=== PATIENT | male | born 1960 | race Caucasian/White ===

== ENCOUNTER 2016-06-10 09:26 | Day surgery (SDC) | payer MEDICARE, MEDICAID ==
[2016-06-10] MEDS ORDERED: LACTATED RINGERS 1,000 ML IV ONE (10:00)
[2016-06-10] MEDS ORDERED: MIDAZOLAM 2 MG/2 ML VIAL IVP ONE (10:56)
[2016-06-10] MEDS ORDERED: fentaNYL 250 MCG/5 ML VIAL IVP ONE (10:56)
== END 2016-06-10 09:27 | disposition home or self-care (01) ==
PROC: 0DJD8ZZ Inspection of Lower Intestinal Tract, Via Natural or Artificial Opening Endoscopic (ICD-10-PCS; principal; 2016-06-10 10:30)
DX: Z12.11 Encounter for screening for malignant neoplasm of colon (principal); K64.4 Residual hemorrhoidal skin tags; F32.9 Major depressive disorder, single episode, unspecified; K21.9 Gastro-esophageal reflux disease without esophagitis; R03.0 Elevated blood-pressure reading, without diagnosis of hypertension; I10 Essential (primary) hypertension; G47.30 Sleep apnea, unspecified; Z95.0 Presence of cardiac pacemaker; Z82.61 Family history of arthritis; Z80.9 Family history of malignant neoplasm, unspecified; Z83.3 Family history of diabetes mellitus
CPT/HCPCS: G0121; J3010; J7120

== ENCOUNTER 2016-06-23 22:02 | Emergency (ER) | payer MEDICARE, MEDICAID | END 2016-06-23 23:41 | disposition home or self-care (01) | DX: N45.1 Epididymitis (principal); I10 Essential (primary) hypertension; G47.30 Sleep apnea, unspecified; K21.9 Gastro-esophageal reflux disease without esophagitis; Z87.11 Personal history of peptic ulcer disease ==

== ENCOUNTER 2017-08-05 09:15 | Outpatient (CLI) | payer MEDICARE, MEDICAID ==
[2017-08-05] MEDS ORDERED: BARIUM SULFATE 135 ML BOTTLE PO ONE (09:45)
[2017-08-05] MEDS ORDERED: BARIUM SULFATE 148 GM POWDER PO ONE (09:45)
--- NOTE | 2017-08-05 15:49 | XRAY Report ---
ESOPHAGRAM: 08/05/2017 INDICATION: Choking. FINDINGS: Esophagram was performed in the upright and prone positions. The esophagus is normal in caliber. Tertiary contractions were seen. Gastroesophageal reflux was visualized during the course of the study. There is no evidence of esophageal mass, ulceration, or stricturing. The hypopharynx appears unremarkable. A 13 mm barium pill passed freely through the esophagus and into the stomach. IMPRESSION: GASTROESOPHAGEAL REFLUX AND PRESBYESOPHAGUS. NO EVIDENCE OF MASS OR ULCERATION. FLUOROSCOPY TIME: 2 minutes 15 seconds; 21 spot images obtained. TD: 08/05/2017 12:17 [email or web address]
== END 2017-08-05 09:16 | disposition home or self-care (01) ==
LOC: DI 09:15
PROVIDERS: ATTEND Nurse Practitioner Family
DX: K21.9 Gastro-esophageal reflux disease without esophagitis (principal); K22.8 Other specified diseases of esophagus
CPT/HCPCS: 74220; A9270

== ENCOUNTER 2017-08-28 11:43 | Outpatient (CLI) | payer MEDICARE, MEDICAID | END 2017-08-28 11:44 | disposition short-term general hospital (02) | LOC: EMS 11:43 | PROVIDERS: ATTEND Surgery | DX: R42 Dizziness and giddiness (principal); R11.0 Nausea; R10.9 Unspecified abdominal pain | CPT/HCPCS: A0425; A0427 ==

== ENCOUNTER 2018-09-08 08:45 | Outpatient (CLI) | payer MEDICARE, MEDICAID ==
[2018-09-08 11:07] LABS: BASOPHILS # (AUTO) 0.1 10^3/uL (0.0-0.1); BASOPHILS % (AUTO) 0.7 %; EOSINOPHILS # (AUTO) 0.5 10^3/uL (0.0-0.7); EOSINOPHILS % (AUTO) 7.3 %; HGB - HEMOGLOBIN 13.8 g/dL (14.0-18.0); LYMPHOCYTES # (AUTO) 1.8 10^3/uL (1.5-3.5); LYMPHOCYTES % (AUTO) 24.7 %; MEAN CORPUSCULAR HEMOGLOBIN 28.7 pg (27.0-31.0); MEAN CORPUSCULAR HGB CONC 32.9 g/dL (32.0-36.0); MEAN CORPUSCULAR VOLUME 87.3 fL (80.0-94.0); MEAN PLATELET VOLUME 9.6 fL (7.4-11.4); MONOCYTES # (AUTO) 0.8 10^3/uL (0.0-1.0); MONOCYTES % (AUTO) 10.5 %; NEUTROPHILS # (AUTO) 4.1 10^3/uL (1.5-6.6); NEUTROPHILS % (AUTO) 56.8 %; PLT - PLATELET COUNT 180 10^3/uL (130-450); RED BLOOD COUNT 4.81 10^6/uL (4.70-6.10); WHITE BLOOD COUNT 7.3 x10^3/uL (4.8-10.8)
[2018-09-08 17:45] LABS: HB2 TOTAL 14.5 g/dL; HEMOGLOBIN A1C 0.68 g/dL; HEMOGLOBIN A1C % 6.4 % (4.6-6.2)
[2018-09-08 17:50] LABS: BILIRUBIN,URINE NEGATIVE (NEGATIVE); GLUCOSE, URINE (UA) NEGATIVE (NEGATIVE); KETONES,URINE (UA) NEGATIVE (NEGATIVE); LEUKOCYTE ESTERASE, URINE NEGATIVE (NEGATIVE); NITRITE,URINE NEGATIVE (NEGATIVE); OCCULT BLOOD,URINE NEGATIVE (NEGATIVE); PROTEIN,URINE NEGATIVE (NEGATIVE); UROBILINOGEN,URINE 0.2 (NORMAL) E.U./dL (NORMAL)
[2018-09-08 17:51] LABS: ALBUMIN 4.1 g/dL (3.2-5.5); ALBUMIN/GLOBULIN RATIO 1.2 (1.0-2.2); ALKALINE PHOSPHATASE 88 IU/L (42-121); ALT ALANINE AMINOTRANSFERASE 27 IU/L (10-60); AST ASPARTATE AMINOTRANSFERASE 23 IU/L (10-42); BILIRUBIN,TOTAL 0.6 mg/dL (0.2-1.0); BUN - BLOOD UREA NITROGEN 11 mg/dL (6-20); CALCIUM 9.5 mg/dL (8.5-10.3); CARBON DIOXIDE - CO2 31 mmol/L (21-32); CHLORIDE 100 mmol/L (101-111); CHOL/HDL RATIO 6.1 (<5.0); CHOLESTEROL 188 mg/dL; CREATININE 0.9 mg/dL (0.6-1.2); GFR - MDRD 86 (>89); GLUCOSE 132 mg/dL (70-100); HDL CHOLESTEROL 31 mg/dL; LDL CHOLESTEROL,CALCULATED 115 mg/dL; LDL/HDL RATIO 3.7 (<3.6); SODIUM 139 mmol/L (135-145); TOTAL PROTEIN 7.6 g/dL (6.7-8.2); VLDL CHOLESTEROL 42 mg/dL
[2018-09-08 18:07] LABS: CLARITY,URINE CLOUDY (CLEAR)
[2018-09-08 18:22] LABS: AMORPHOUS SEDIMENT,UR Marked /LPF; BACTERIA,URINE None Seen /HPF (None Seen); RBC,URINE None Seen /HPF (0-5); SQUAMOUS EPITHELIAL CELL,UR NONE SEEN (<= Few)
== END 2018-09-08 08:46 | disposition home or self-care (01) ==
LOC: LAB.F 08:45
PROVIDERS: ATTEND Nurse Practitioner
DX: I10 Essential (primary) hypertension (principal); Z13.89 Encounter for screening for other disorder; R35.0 Frequency of micturition; Z13.1 Encounter for screening for diabetes mellitus; Z12.5 Encounter for screening for malignant neoplasm of prostate
CPT/HCPCS: 36415; 80053; 80061; 81001; 83036; 85025; G0103; 81003; 83721; 84153; 87086

== ENCOUNTER 2019-02-15 08:39 | Outpatient (CLI) | payer MEDICARE, MEDICAID ==
[2019-02-15 10:53] LABS: ALBUMIN 4.3 g/dL (3.2-5.5); BILIRUBIN,DIRECT 0.1 mg/dL (0.1-0.5); BILIRUBIN,TOTAL 0.8 mg/dL (0.2-1.0); TOTAL PROTEIN 7.7 g/dL (6.7-8.2)
== END 2019-02-15 08:40 | disposition home or self-care (01) ==
LOC: LAB.S 08:39
PROVIDERS: ATTEND Internal Medicine
DX: B35.1 Tinea unguium (principal)
CPT/HCPCS: 36415; 80076

== ENCOUNTER 2019-12-09 19:40 | Emergency (ER) | payer MEDICARE, MEDICAID ==
[2019-12-09 19:54] VITALS: BP 145/90
[2019-12-09] MEDS ORDERED: AMOX/CLAV 875 MG/125 MG TABLET PO STA (19:56)
--- NOTE | 2019-12-09 19:57 | ED Physician Documentation ---
PD HPI LOWER EXT INJURY - Stated complaint Stated Complaint: RT FOOT PX/SMELL - Chief complaint Chief Complaint: Wound - History obtained from History obtained from: Patient, Family - Additional information Additional information: 59-year-old gentleman with history of CLL in remission lost multiple toes in an accident in the . More recently has been walking more and now has an overuse type wound on the end of the right foot with foul-smelling drainage. No fevers or chills. Review of Systems Constitutional: reports: Reviewed and negative Ears: reports: Reviewed and negative Nose: reports: Reviewed and negative Throat: reports: Reviewed and negative Cardiac: reports: Reviewed and negative PD PAST MEDICAL HISTORY - Past Medical History Cardiovascular: Hypertension, Other Respiratory: Sleep apnea Endocrine/Autoimmune: None GI: GERD, Ulcers : None HEENT: None Psych: Depression Musculoskeletal: None Derm: None - Past Surgical History Past Surgical History: Yes General: Appendectomy, Bowel surgery Cardiovascular: Pacemaker - Present Medications Home Medications: Ambulatory Orders Medication Instructions Recorded Confirmed Pantoprazole [Protonix] 40 mg PO DAILY 04/22/15 12/09/19 Cyanocobalamin (Vitamin B-12) 1 tab PO DAILY 06/09/16 12/09/19 [Vitamin B-12] Ibuprofen [Motrin] 600 mg PO Q6H PRN 07/21/16 12/09/19 Propranolol ER [Inderal LA] 80 mg PO DAILY 06/05/18 12/09/19 Sertraline HCl 100 mg PO DAILY 04/02/19 12/09/19 Amox/Clav 875/125 [Augmentin] 1 each PO Q12H #20 tablet 12/09/19 - Allergies Allergies/Adverse Reactions: Allergies Allergy/AdvReac Type Severity Reaction Status Date / Time No Known Drug Allergies Allergy Verified 12/09/19 19:54 - Social History Does the pt smoke?: No Smoking Status: Never smoker Does the pt drink ETOH?: No Does the pt have substance abuse?: No - Immunizations Immunizations are current?: Yes - POLST Patient has POLST: No PD ED PE NORMAL - Vitals Vital signs reviewed: Yes - General General: Alert and oriented X 3, No acute distress - Extremities Extremities: Other (Extensive surgical changes to the distal right foot, he is missing all of the toes. He says there is no hardware in place. There is a small draining fistula near the distal first metatarsal and a large callus over the tip of probably the second and third metatarsals which was debrided during exam.) - Neuro Neuro: Alert and oriented X 3, Normal speech Results - Vitals Vitals: Vital Signs - 24 hr 12/09/19 19:40 Temperature 37.0 C Heart Rate 62 Respiratory 16 Rate Blood Pressure 145/90 H O2 Saturation 97 Oxygen O2 Source Room air - Labs Labs: Microbiology 12/09/19 19:55 Wound Culture - Preliminary Foot - Right - Rads (name of study) 3 views of the right foot Radiology: EMP read contemporaneously (Extensive postsurgical changes without evidence of osteomyelitis) PD MEDICAL DECISION MAKING - ED course ED course: 59-year-old gentleman presents with an infected callus of his distal foot. He is not diabetic. It was debrided during exam but will need more debridement with a field sales specialist. A culture was done and he was started on Augmentin pending follow-up. Departure - Departure Disposition: 01 Home, Self Care Clinical Impression: Foot infection Condition: Good Record reviewed to determine appropriate education?: Yes Instructions: ED Infec Skin Cellulitis Follow-Up: Taty Robles DPM [Provider Admit Priv/Credential] - Prescriptions: Amox/Clav 875/125 [Augmentin] 1 each PO Q12H #20 tablet Comments: Follow-up with your field sales specialist, next available appointment for consideration for debridement and orthotics. We are performing a wound culture, the results should be done in 48-72 hours. If antibiotic change is necessary we will call you. Return if worse in the meantime, especially if you develop increased pain, fevers, cannot keep down the medication. Otherwise follow-up with your physician in approximately 2-3 days. Discharge Date/Time: 12/09/19 20:52
--- NOTE | 2019-12-09 20:32 | XRAY Report ---
PROCEDURE: Foot 3 View RT INDICATIONS: foot infection TECHNIQUE: 3 views of the foot were acquired. COMPARISON: None FINDINGS: Bones: Patient is status post amputation of the second through fifth toes. Patient is status post amp utation of the first digit distal to the base of the first metatarsal. Orthopedic hardware noted in t he distal aspect of the fourth metatarsal. No fractures or dislocations. No osseous erosive changes o r periosteal reaction. Soft tissues: No tibiotalar joint effusion. Achilles tendon appears normal. No soft tissue gas. IMPRESSION: 1. Status post first and fifth digit amputations. 2. No genesis evidence of osteomyelitis. Please note plain film radiographs can be insensitive to to es of osteomyelitis in the initial 15 days. If there is continued clinical concern for osteomyelitis, three-phase nuclear medicine bone scan should be considered for further evaluation. Reviewed by: Karina Cohn MD, PhD on 12/09/2019 8:31 PM PDT Approved by: Karina Cohn MD, PhD on 12/09/2019 8:31 PM PDT Station ID: [id number]
== END 2019-12-09 20:52 | disposition home or self-care (01) ==
LOC: ED 19:40
DX: L84 Corns and callosities (principal); L08.9 Local infection of the skin and subcutaneous tissue, unspecified; I10 Essential (primary) hypertension; C91.11 Chronic lymphocytic leukemia of B-cell type in remission; Z89.411 Acquired absence of right great toe; Z89.421 Acquired absence of other right toe(s)
CPT/HCPCS: 11000; 73630; 87070; 87181; 87205; 99283; 99284; A9270

== ENCOUNTER 2020-03-19 15:29 | Day surgery (SDC) | payer MEDICARE, MEDICAID ==
[2020-03-19] MEDS ORDERED: GLUCAGON 1 MG/ML VIAL IVP STA (16:40)
--- NOTE | 2020-03-19 16:41 | ED Physician Documentation ---
History of Present Illness - Stated complaint Stated Complaint: TROUBLE SWALLOWING, "FOOD GOT LODGED - Chief complaint Chief Complaint: Heent - History obtained from History obtained from: Patient - Additonal information Additional information: 60-year-old gentleman who has what sounds like an esophageal stricture. He was seeing GI at some point dilatation was recommended but he "chickened out." He has had what he thinks is probably a piece of meat stuck in his esophagus since last night and cannot tolerate his secretions although at the bedside he looks comfortable with normal phonation and not spitting into anything. Review of Systems Constitutional: reports: Reviewed and negative Nose: reports: Reviewed and negative Throat: reports: Reviewed and negative Cardiac: reports: Reviewed and negative PD PAST MEDICAL HISTORY - Past Medical History Cardiovascular: Hypertension, Other Respiratory: Sleep apnea Endocrine/Autoimmune: None GI: GERD, Ulcers : None HEENT: None Psych: Depression Musculoskeletal: None Derm: None - Past Surgical History Past Surgical History: Yes General: Appendectomy, Bowel surgery Cardiovascular: Pacemaker - Present Medications Home Medications: Ambulatory Orders Medication Instructions Recorded Confirmed Pantoprazole [Protonix] 40 mg PO DAILY 04/22/15 01/08/20 Cyanocobalamin (Vitamin B-12) 1 tab PO DAILY 06/09/16 01/08/20 [Vitamin B-12] Ibuprofen [Motrin] 600 mg PO Q6H PRN 07/21/16 01/08/20 Propranolol ER [Inderal LA] 80 mg PO DAILY 06/05/18 01/08/20 Sertraline HCl 100 mg PO DAILY 04/02/19 01/08/20 Amox/Clav 875/125 [Augmentin] 1 each PO Q12H #20 tablet 12/09/19 01/08/20 - Allergies Allergies/Adverse Reactions: Allergies Allergy/AdvReac Type Severity Reaction Status Date / Time No Known Drug Allergies Allergy Verified 03/19/20 15:38 - Social History Does the pt smoke?: No Smoking Status: Never smoker Does the pt drink ETOH?: No Does the pt have substance abuse?: No - Immunizations Immunizations are current?: Yes - POLST Patient has POLST: No PD ED PE NORMAL - Vitals Vital signs reviewed: Yes - General General: Alert and oriented X 3, No acute distress - HEENT HEENT: Pharynx benign - Cardiac Cardiac: RRR, No murmur - Respiratory Respiratory: No respiratory distress, Clear bilaterally - Abdomen Abdomen: Non tender - Derm Derm: Normal color, Warm and dry - Extremities Extremities: No deformity, No tenderness to palpate - Neuro Neuro: Alert and oriented X 3, Normal speech Results - Vitals Vitals: Vital Signs - 24 hr 03/19/20 15:34 Temperature 36.1 C L Heart Rate 83 Respiratory 14 Rate Blood Pressure 136/89 H O2 Saturation 99 Oxygen O2 Source Room air PD MEDICAL DECISION MAKING - ED course ED course: 60-year-old gentleman with recurrent esophageal food impactions due to stricture presents with same. He was given IV glucagon at the same time as [employer] with pop rocks in it and this resulted in copious vomiting. He was unable to tolerate his secretions at that point and I made a call to Dr. East, the on- call surgeon who requested basic labs and a Covid test and will be in to see the patient with plan for upper endoscopy tonight. Departure - Departure Disposition: ED Transfer to [facility] Clinical Impression: Foreign body in esophagus Qualifiers: Encounter type: initial encounter Qualified Code(s): T18.108A - Unspecified foreign body in esophagus causing other injury, initial encounter Condition: Stable
[2020-03-19 17:43] LABS: BASOPHILS # (AUTO) 0.1 10^3/uL (0.0-0.1); BASOPHILS % (AUTO) 0.9 %; EOSINOPHILS # (AUTO) 1.3 10^3/uL (0.0-0.7); EOSINOPHILS % (AUTO) 10.1 %; HGB - HEMOGLOBIN 15.3 g/dL (14.0-18.0); LYMPHOCYTES # (AUTO) 4.5 10^3/uL (1.5-3.5); LYMPHOCYTES % (AUTO) 35.2 %; MEAN CORPUSCULAR HEMOGLOBIN 29.3 pg (27.0-31.0); MEAN CORPUSCULAR HGB CONC 31.6 g/dL (32.0-36.0); MEAN CORPUSCULAR VOLUME 92.7 fL (80.0-94.0); MEAN PLATELET VOLUME 11.1 fL (7.4-11.4); MONOCYTES # (AUTO) 0.9 10^3/uL (0.0-1.0); MONOCYTES % (AUTO) 7.1 %; NEUTROPHILS % (AUTO) 46.5 %; PLT - PLATELET COUNT 185 10^3/uL (130-450); RED BLOOD COUNT 5.22 10^6/uL (4.70-6.10); RED CELL DISTRIBUTION WIDTH 15.4 % (12.0-15.0); WHITE BLOOD COUNT 12.9 x10^3/uL (4.8-10.8)
[2020-03-19 17:51] LABS: CALCIUM 9.6 mg/dL (8.5-10.3); CREATININE 1.1 mg/dL (0.6-1.2)
[2020-03-19 17:56] LABS: INR 1.2 (0.8-1.2); PT - PROTHROMBIN TIME 12.9 secs (9.9-12.6)
[2020-03-19 18:08] LABS: PLATELET ESTIMATE, MANUAL NORMAL (130-450,000) (NORMAL); PLATELET MORPHOLOGY NORMAL APPEARANCE (NORMAL); RBC MORPHOLOGY (MULTIPLE) NORMAL APPEARANCE (NORMAL)
--- NOTE | 2020-03-19 18:56 | ANESTHESIA ---
Pre-Anesthesia VS, & Labs - Diagnosis foreign body esophagus - Procedure EGD Vital Signs: Temp Pulse Resp BP Pulse Ox 37.1 C 61 18 140/85 H 97 03/19/20 18:44 03/19/20 18:44 03/19/20 18:44 03/19/20 18:44 03/19/20 18:44 Height: 6 ft 8 in Weight (kg): 148.778 kg Body Mass Index: 36.0 BMI Classification: Obese - NPO >8 hours - Lab Results Current Lab Results: Laboratory Tests 03/19/20 17:37: Sodium 138, Potassium 3.8, Chloride 100 L, Carbon Dioxide 28, Anion Gap 10.0, BUN 16, Creatinine 1.1, Estimated GFR (MDRD) 68 L, Glucose 153 H , Calcium 9.6 03/19/20 17:37: PT 12.9 H, INR 1.2 03/19/20 17:37: WBC 12.9 H, RBC 5.22, Hgb 15.3, Hct 48.4, MCV 92.7, MCH 29.3, MCHC 31.6 L, RDW 15.4 H, Plt Count 185, MPV 11.1, Neut # (Auto) 6.0, Lymph # (Auto) 4.5 H, [place] # (Auto) 0.9, Eos # (Auto) 1.3 H, Baso # (Auto) 0.1, Absolute Nucleated RBC 0.00, Nucleated RBC % 0.0, Manual Slide Review Indicated, Platelet Estimate NORMAL (130-450,000), Platelet Morphology NORMAL APPEARANCE, RBC Morph Micro Appear NORMAL APPEARANCE Lab results reviewed: Yes Fish Bones: 03/19/20 17:37 03/19/20 17:37 Home Medications and Allergies Pantoprazole [Protonix] 40 mg PO DAILY 04/22/15 Cyanocobalamin (Vitamin B-12) [Vitamin B-12] 1 tab PO DAILY 06/09/16 Ibuprofen [Motrin] 600 mg PO Q6H PRN 07/21/16 Propranolol ER [Inderal LA] 80 mg PO DAILY 06/05/18 Sertraline HCl 100 mg PO DAILY 04/02/19 Allergies/Adverse Reactions: Allergies Allergy/AdvReac Type Severity Reaction Status Date / Time No Known Drug Allergies Allergy Verified 03/19/20 15:38 Anes History & Medical History - Anesthetic History Anesthesia Complications: reports: No previous complications Family history of Anesthesia Complications: Denies Family history of Malignant Hyperthermia: Denies - Medical History Cardiovascular: reports: Hypertension, Other Pulmonary: reports: Sleep apnea Gastrointestinal: reports: GERD, Ulcers Urinary: reports: None Musculoskeletal: reports: None Endocrine/Autoimmune: reports: None Skin: reports: None Smoking Status: Never smoker - Surgical History General: Appendectomy, Bowel surgery Cardiothoracic: Pacemaker Exam General: Alert, Oriented x3, Cooperative, No acute distress Dental: Dentures full Upper, Dentures full Lower Mouth Openin Fingerbreadth Neck Mobility: Normal Mallampati classification: II Plan Anesthesia Type: General Consent for Procedure(s) Verified and Reviewed: Yes Code Status: Attempt Resuscitation ASA classification: 3-Severe systemic disease Is this case an emergency?: Yes
--- NOTE | 2020-03-19 19:09 | HISTORY & PHYSICAL EXAMINATION ---
Chief Complaint - Chief Complaint Chief Complaint: can't swallow since having meat yesterday Abdominal Pain HPI - Admitted From Admitted from: ED - History Obtained From History obtained from: Patient Exam limitations: No limitations - History of Present Illness Severity at the worst: Mild Pain Quality: Dull Context-Pain started w/: Eating Timing: Abrupt onset Duration: Days: (1) Improved with: Nothing Worsened by: Eating Associated symptoms: Other (can't swallow and needs to spit up saliva) HPI Comment/Other: He has history of esophageal dysmotility. He had a barium swallow 2 years ago at [facility]. No strictures. Presbyesophagus and tertiary contractions seen. He states he had a similar episode and an EGD at [facility]. He does not believe he had a stricture. He remembers been told he had a food allergy. He has history of lymphoma. Currently disease free. He denies lung and heart problems. PMH/PSH - Past Medical History Cardiovascular: positive: Hypertension, Other Respiratory: positive: Sleep apnea Endocrine/Autoimmune: positive: None GI: positive: GERD, Ulcers : positive: None HEENT: positive: None Psych: positive: Depression Musculoskeletal: positive: None Derm: positive: None MRSA Hx?: No - Past Surgical History General: positive: Appendectomy, Bowel surgery Cardiovascular: positive: Pacemaker Social & Family Hx - Social History Does the pt smoke?: No Smoking Status: Never smoker Does the pt drink ETOH?: No Does the pt have substance abuse?: No - POLST Patient has POLST: No Meds/Allgy - Home Medications Home Medications: Ambulatory Orders Medication Instructions Recorded Confirmed Pantoprazole [Protonix] 40 mg PO DAILY 04/22/15 01/08/20 Cyanocobalamin (Vitamin B-12) 1 tab PO DAILY 06/09/16 01/08/20 [Vitamin B-12] Ibuprofen [Motrin] 600 mg PO Q6H PRN 07/21/16 01/08/20 Propranolol ER [Inderal LA] 80 mg PO DAILY 06/05/18 01/08/20 Sertraline HCl 100 mg PO DAILY 04/02/19 01/08/20 Amox/Clav 875/125 [Augmentin] 1 each PO Q12H #20 tablet 12/09/19 01/08/20 - Allergies Allergies/Adverse Reactions: Allergies Allergy/AdvReac Type Severity Reaction Status Date / Time No Known Drug Allergies Allergy Verified 03/19/20 15:38 Review of Systems - Constitutional Constitutional: reports: Fatigue (10 pt ros as above otherwise unremarkable) - Respiratory Respiratory: reports: Apnea Exam - Vital Signs Reviewed Vital Signs: Yes Vital Signs: Vital Signs x48h Temp Pulse Resp BP Pulse Ox 03/19/20 18:44 37.1 C 61 18 140/85 H 97 03/19/20 15:34 36.1 C L 83 14 136/89 H 99 - Physical Exam General Appearance: positive: No acute distress, Alert Eyes Bilateral: positive: PERRL, EOMI ENT: positive: No signs of dehydration Neck: positive: No JVD Respiratory: positive: No respiratory distress Cardiovascular: positive: Regular rate & rhythm Abdomen: positive: Non-tender, No distention Extremities: positive: Other (right foot amp) Neurologic/Psychiatric: positive: Oriented x3 Results - Lab Results Fish Bones: 03/19/20 17:37 03/19/20 17:37 Other Lab Results: Lab Results x24hrs 03/19/20 03/19/20 03/19/20 Range/Units 17:37 17:37 17:37 WBC 12.9 H (4.8-10.8) x10^3/uL RBC 5.22 (4.70-6.10) 10^6/uL Hgb 15.3 (14.0-18.0) g/dL Hct 48.4 (42.0-52.0) % MCV 92.7 (80.0-94.0) fL MCH 29.3 (27.0-31.0) pg MCHC 31.6 L (32.0-36.0) g/dL RDW 15.4 H (12.0-15.0) % Plt Count 185 (130-450) 10^3/uL MPV 11.1 (7.4-11.4) fL Neut # (Auto) 6.0 (1.5-6.6) 10^3/uL Lymph # (Auto) 4.5 H (1.5-3.5) 10^3/uL [place] # (Auto) 0.9 (0.0-1.0) 10^3/uL Eos # (Auto) 1.3 H (0.0-0.7) 10^3/uL Baso # (Auto) 0.1 (0.0-0.1) 10^3/uL Absolute Nucleated RBC 0.00 x10^3/uL Nucleated RBC % 0.0 /100WBC Manual Slide Review Indicated Platelet Estimate NORMAL (130-450,000) (NORMAL) Platelet Morphology NORMAL APPEARANCE (NORMAL) RBC Morph Micro Appear NORMAL APPEARANCE (NORMAL) PT 12.9 H (9.9-12.6) secs INR 1.2 (0.8-1.2) Sodium 138 (135-145) mmol/L Potassium 3.8 (3.5-5.0) mmol/L Chloride 100 L (101-111) mmol/L Carbon Dioxide 28 (21-32) mmol/L Anion Gap 10.0 (6-13) BUN 16 (6-20) mg/dL Creatinine 1.1 (0.6-1.2) mg/dL Estimated GFR (MDRD) 68 L (>89) Glucose 153 H (70-100) mg/dL Calcium 9.6 (8.5-10.3) mg/dL - Diagnostic Imaging Results Diagnostic Imaging Results: positive: Final report reviewed (barium swallow) Impression/Plan - Problem List Problem List: Food impaction and history esophageal dysmotility plan EGD and clearance blockage. parq held and consent obtained
[2020-03-19] MEDS ORDERED: ATROPINE ABBOJECT 1 MG/10 ML SYRINGE IVP PRN (19:33)
[2020-03-19] MEDS ORDERED: MORPHINE 2 MG/ML CARPUJECT IVP PRN (19:33)
[2020-03-19] MEDS ORDERED: ONDANSETRON 4 MG/2 ML VIAL IVP PRN ×2 (19:33→20:36)
[2020-03-19] MEDS ORDERED: HYDROmorphone 0.5 MG/0.5 ML SYRINGE IVP PRN (19:33)
[2020-03-19] MEDS ORDERED: NALOXONE 0.4 MG/ML VIAL IVP PRN (19:33)
[2020-03-19] MEDS ORDERED: fentaNYL 100 MCG/2 ML VIAL IVP PRN (19:33)
[2020-03-19] MEDS ORDERED: ePHEDrine 50 MG/ML VIAL IVP PRN (19:33)
[2020-03-19] MEDS ORDERED: LACTATED RINGERS 1,000 ML IV SCH (20:00)
--- NOTE | 2020-03-19 20:41 | OPERATIVE REPORT ---
Operative Report - General Procedure Date: 03/19/20 Planned Procedure: egd and removal food impaction Pre-Op Diagnosis: esophageal dysmotility and food impaction Procedure Performed: egd and clearance food impaction Post Op Diagnosis: food impaction otherwise normal egd - Procedure Note Primary Surgeon: alma paz Anesthesia Technique: General ET tube Estimated Blood Loss (mL): 0 Findings: normal appearing esophagus and ge jxn and stomach Complications: none
[2020-03-19] MEDS ORDERED: LACTATED RINGERS 200 ML IV ONE (20:42)
--- NOTE | 2020-03-19 21:00 | ANESTHESIA POST OP EVALUATION ---
Anesthesia Post Eval - Post Anesthesia Eval Vitals: Last Vital Signs Temp 36.4 C L 03/19/20 20:50 Pulse 66 03/19/20 20:50 Resp 16 03/19/20 20:50 BP 140/87 H 03/19/20 20:50 Pulse Ox 96 03/19/20 20:50 CV Function Including HR & BP: positive: Stable Pain Control: positive: Satisfactory Nausea & Vomiting: positive: Negative Mental Status: positive: Baseline Respiratory Status: Airway Patent Hydration Status: Satisfactory Anesthesia Complications: positive: None
[2020-03-19 22:17] VITALS: BP 144/86
--- NOTE | 2020-03-20 02:15 | OPERATIVE REPORT ---
DATE OF SERVICE: 03/19/2020 Physician: Jose Eduardo East MD PREOPERATIVE DIAGNOSES 1. History of presbyesophagus, esophageal dysmotility. 2. Esophageal food impaction. POSTOPERATIVE DIAGNOSES 1. History of presbyesophagus, esophageal dysmotility. 2. Esophageal food impaction. PROCEDURE: Esophagogastroduodenoscopy and removal of food impaction. SURGEON: Jose Eduardo East MD COUNTY COURT JUDGE: None. ANESTHESIA: General endotracheal anesthesia. FINDINGS: Normal-appearing esophagus, GE junction and stomach after clearance of the food impaction. INDICATIONS FOR PROCEDURE: The patient is a 60-year-old gentleman with history of esophageal dysmotility based on barium swallow study. He has had prior food impactions and EGD at [facility]. Patient is not aware of other pathology. He presents with a food impaction x24 hours. EGD and removal of the food impaction was offered and recommended. Risks discussed and alternatives discussed. All questions answered and consent obtained. DESCRIPTION OF PROCEDURE: The patient was properly identified and brought to the operating room. The endoscopy equipment was removed from the endoscopy suite to a regular operating room. The endoPRO iQ would not work in the regular operating room. After induction of general endotracheal anesthesia on the stretcher, scope was easily placed. The scope was placed down to the impaction at the GE junction. An hour of time was spent basically piecemealing the food impaction. He had meat, which was too hard to push through and too soft to get a significant grasp and pulled outwards. Wire basket was tried, net was tried, balloon was tried. With continued piecemeal dissection, the food impaction became small enough that it could be pushed downwards. GE junction was normal as well as distal esophagus and the entire esophagus, for that matter. The stomach was normal. There was no hiatal hernia. The patient tolerated the procedure well, was awakened and recovered in the operating room before going to a hospital room. TD: 03/19/2020 20:46 TC
== END 2020-03-19 22:23 | disposition home or self-care (01) ==
LOC: ED 15:29 → SDS 18:50 → MS2 21:04 → SDS 22:23
PROVIDERS: ATTEND Surgery
DX: T18.128A Food in esophagus causing other injury, initial encounter (principal); K22.4 Dyskinesia of esophagus; I10 Essential (primary) hypertension; G47.30 Sleep apnea, unspecified; Z20.828 Contact with and (suspected) exposure to other viral communicable diseases; Z85.72 Personal history of non-Hodgkin lymphomas; Z95.0 Presence of cardiac pacemaker; E66.9 Obesity, unspecified; Z68.36 Body mass index [BMI] 36.0-36.9, adult
CPT/HCPCS: 36415; 43247; 80048; 85025; 85610; J7120

== ENCOUNTER 2020-08-29 08:00 | Outpatient (CLI) | payer MEDICARE, MEDICAID | END 2020-08-29 23:59 | disposition home or self-care (01) | LOC: LAB.S 08:00 | PROVIDERS: ATTEND Physician Assistant | DX: N41.0 Acute prostatitis (principal) | CPT/HCPCS: 87086 ==

== ENCOUNTER 2020-10-20 20:38 | Day surgery (SDC) | payer MEDICARE, MEDICAID ==
--- NOTE | 2020-10-20 21:31 | ED Physician Documentation ---
History of Present Illness - Stated complaint Stated Complaint: THROAT F/O - Chief complaint Chief Complaint: Heent - History obtained from History obtained from: Patient - History of Present Illness Timing: Enter time (18:30), Today Pain level now: 4 Improved by: nothing Worsened by: attempts to take any PO including sips of liquids - Additonal information Additional information: at approximately 6:30 PM today while eating dinner (pork), patient swallowed a piece of pork which he felt immediately became stuck in his upper esophagus (points to lower aspect of neck in indicating where it feels stuck). He has tried to swallow sips of liquids but this comes back up. He is able to handle/swallow some of his secretions. He has h/o food bolus impaction and was T+R from this facility in March for same. Review of Systems Constitutional: denies: Fever, Chills, Sweats Cardiac: reports: Reviewed and negative Respiratory: reports: Reviewed and negative GI: reports: Nausea. denies: Abdominal Pain, Vomiting PD PAST MEDICAL HISTORY - Past Medical History Cardiovascular: Hypertension, Other Respiratory: Sleep apnea Endocrine/Autoimmune: None GI: GERD, Ulcers : None HEENT: None Psych: Depression Musculoskeletal: None Derm: None - Past Surgical History Past Surgical History: Yes General: Appendectomy, Bowel surgery Cardiovascular: Pacemaker - Present Medications Home Medications: Ambulatory Orders Medication Instructions Recorded Confirmed Pantoprazole [Protonix] 40 mg PO DAILY 04/22/15 01/08/20 Cyanocobalamin (Vitamin B-12) 1 tab PO DAILY 06/09/16 01/08/20 [Vitamin B-12] Ibuprofen [Motrin] 600 mg PO Q6H PRN 07/21/16 01/08/20 Propranolol ER [Inderal LA] 80 mg PO DAILY 06/05/18 01/08/20 Sertraline HCl 150 mg PO DAILY 04/02/19 01/08/20 Aspirin Chewable [[place] 81 mg PO DAILY 10/20/20 10/20/20 Aspirin] Cholecalciferol (Vitamin D3) 50,000 unit PO 10/20/20 10/20/20 [Vitamin D] - Allergies Allergies/Adverse Reactions: Allergies Allergy/AdvReac Type Severity Reaction Status Date / Time No Known Drug Allergies Allergy Verified 10/20/20 22:21 - Social History Does the pt smoke?: No Smoking Status: Never smoker Does the pt drink ETOH?: No Does the pt have substance abuse?: No - Immunizations Immunizations are current?: Yes - POLST Patient has POLST: No PD ED PE NORMAL - Vitals Vital signs reviewed: Yes - General General: Alert and oriented X 3, Well developed/nourished, Other (appears uncomfortable at times during H+P) - HEENT HEENT: Moist mucous membranes - Neck Neck: Supple, no meningeal sign - Cardiac Cardiac: RRR, No murmur - Respiratory Respiratory: No respiratory distress, Clear bilaterally - Abdomen Abdomen: Soft, Non tender Results - Vitals Vitals: Oxygen O2 Source Room air - Labs Labs: Laboratory Tests 10/20/20 10/20/20 22:48 22:48 WBC 13.9 H RBC 4.16 L Hgb 12.7 L Hct 39.1 L MCV 94.0 MCH 30.5 MCHC 32.5 RDW 15.8 H Plt Count 146 MPV 10.9 Neut # (Auto) Not Reportable Lymph # (Auto) Not Reportable [place] # (Auto) Not Reportable Eos # (Auto) Not Reportable Baso # (Auto) Not Reportable Absolute Nucleated RBC Not Reportable Total Counted 100 Band Neuts % (Manual) 0 Abnorm Lymph % (Manual) 0 Nucleated RBC % Not Reportable Neutrophils # (Manual) 3.1 Lymphocytes # (Manual) 8.8 H Monocytes # (Manual) 1.1 H Eosinophils # (Manual) 0.8 H Basophils # (Manual) 0.1 Differential Comment MANUAL DIFFERENTIAL WBC Morphology NORMAL APPEARANCE Platelet Estimate NORMAL (130-450,000) Platelet Morphology NORMAL APPEARANCE RBC Morph Micro Appear NORMAL APPEARANCE Sodium 142 Potassium 3.4 L Chloride 104 Carbon Dioxide 27 Anion Gap 11.0 BUN 13 Creatinine 1.1 Estimated GFR (MDRD) 68 L Glucose 110 H Calcium 9.4 PD MEDICAL DECISION MAKING - ED course Complexity details: reviewed old records, considered differential, d/w patient ED course: D/W Dr. East, will take patient to OR tonight to remove presumptive food bolus impaction Departure - Departure Disposition: ED Transfer to [facility] Clinical Impression: Food impaction of esophagus Qualifiers: Encounter type: initial encounter Qualified Code(s): T18.128A - Food in esophagus causing other injury, initial encounter Condition: Stable Discharge Date/Time: 10/20/20 22:53
[2020-10-20] MEDS ORDERED: LIDOCAINE-MPF 2% 5 ML VIAL ONE (22:37)
[2020-10-20] MEDS ORDERED: PROPOFOL 200 MG/20 ML VIAL IVP ONE (22:37)
[2020-10-20] MEDS ORDERED: SUCCINYLCHOLINE 200 MG/10 ML VIAL ONE (22:38)
[2020-10-20] MEDS ORDERED: MIDAZOLAM 2 MG/2 ML VIAL ONE (22:40)
[2020-10-20] MEDS ORDERED: fentaNYL 100 MCG/2 ML VIAL ONE (22:40)
--- NOTE | 2020-10-20 22:45 | ANESTHESIA ---
Pre-Anesthesia VS, & Labs - Diagnosis impacted food bolus - Procedure EGD with removal of FB Vital Signs: Temp Pulse Resp BP Pulse Ox 36.6 C 87 16 136/87 H 98 10/20/20 20:48 10/20/20 20:48 10/20/20 20:48 10/20/20 20:48 10/20/20 20:48 Height: 6 ft 8 in Weight (kg): 120.202 kg Body Mass Index: 29.1 BMI Classification: Overweight - NPO Last Food Intake: 1830 Home Medications and Allergies Home Medications: Ambulatory Orders Aspirin Chewable [[place]alo Aspirin] 81 mg PO DAILY 10/20/20 Cholecalciferol (Vitamin D3) [Vitamin D] 50,000 unit PO 10/20/20 Pantoprazole [Protonix] 40 mg PO DAILY 04/22/15 Cyanocobalamin (Vitamin B-12) [Vitamin B-12] 1 tab PO DAILY 06/09/16 Ibuprofen [Motrin] 600 mg PO Q6H PRN 07/21/16 Propranolol ER [Inderal LA] 80 mg PO DAILY 06/05/18 Sertraline HCl 150 mg PO DAILY 04/02/19 Aspirin Chewable [[facility] [place] Aspirin] 81 mg PO DAILY 10/20/20 Cholecalciferol (Vitamin D3) [Vitamin D] 50,000 unit PO 10/20/20 Allergies/Adverse Reactions: Allergies Allergy/AdvReac Type Severity Reaction Status Date / Time No Known Drug Allergies Allergy Verified 10/20/20 22:21 Anes History & Medical History - Anesthetic History Anesthesia Complications: reports: No previous complications - Medical History Cardiovascular: reports: Hypertension, Other (pacemaker for bradycardia) Pulmonary: reports: Sleep apnea (does not use cpap) Gastrointestinal: reports: GERD, Ulcers Urinary: reports: None Neuro: reports: None Musculoskeletal: reports: None Endocrine/Autoimmune: reports: None Blood Disorders: reports: Anemia Skin: reports: None Smoking Status: Never smoker Psychosocial: reports: No issues indicated History of Cancer?: Yes (CLL, recent recurrance) Other Past Medical History: CLL - Surgical History General: reports: Appendectomy, Bowel surgery, EGD Cardiothoracic: reports: Pacemaker Orthopedic: reports: Amputation Exam General: Alert, Oriented x3, Cooperative, No acute distress Dental: Other (edentulous) Mouth Openin Fingerbreadth Neck Mobility: Normal Mallampati classification: II Thyromental Distance: 4-6 cm Mental/Cognitive Status: Alert/Oriented X3, Normal for patient Plan Anesthesia Type: General (with RSI) Consent for Procedure(s) Verified and Reviewed: Yes Code Status: Attempt Resuscitation ASA classification: 3-Severe systemic disease Is this case an emergency?: Yes
--- NOTE | 2020-10-20 22:49 | HISTORY & PHYSICAL EXAMINATION ---
Chief Complaint - Chief Complaint Chief Complaint: food stuck after eating pork History of Present Illness - Admitted From Admitted From:: ED - History Obtained From Records Reviewed: yes History obtained from: pt Exam Limitations: none - History of Present Illness HPI Comment/Other: History of esophageal dysmotility and food impaction with normal appearing esophagus without other pathology. History - Past Medical History Cardiovascular: reports: Hypertension, Other (pacemaker for bradycardia) Respiratory: reports: Sleep apnea (does not use cpap) Neuro: reports: None Endocrine/Autoimmune: reports: None GI: reports: GERD, Ulcers : reports: None HEENT: reports: None Psych: reports: Depression Musculoskeletal: reports: None Derm: reports: None MRSA Hx?: No Other Past Medical History: CLL - Past Surgical History General: reports: Appendectomy, Bowel surgery, EGD Ortho: reports: Amputation Cardiovascular: reports: Pacemaker - POLST Patient has POLST: No Meds/Allgy - Home Medications Home Medications: Ambulatory Orders Medication Instructions Recorded Confirmed Pantoprazole [Protonix] 40 mg PO DAILY 04/22/15 01/08/20 Cyanocobalamin (Vitamin B-12) 1 tab PO DAILY 06/09/16 01/08/20 [Vitamin B-12] Ibuprofen [Motrin] 600 mg PO Q6H PRN 07/21/16 01/08/20 Propranolol ER [Inderal LA] 80 mg PO DAILY 06/05/18 01/08/20 Sertraline HCl 150 mg PO DAILY 04/02/19 01/08/20 Aspirin Chewable [[facility] [place]alo 81 mg PO DAILY 10/20/20 10/20/20 Aspirin] Cholecalciferol (Vitamin D3) 50,000 unit PO 10/20/20 10/20/20 [Vitamin D] - Allergies Allergies/Adverse Reactions: Allergies Allergy/AdvReac Type Severity Reaction Status Date / Time No Known Drug Allergies Allergy Verified 10/20/20 22:21 Review of Systems - Constitutional Constitutional: reports: Fatigue - Other Findings Other Findings: 10 pt ros as above otherwise unremarkable. no respiratory problem or aspiration Exam - Vital Signs Reviewed Vital Signs: Yes Vital Signs: Vital Signs x48h Temp Pulse Resp BP Pulse Ox 10/20/20 20:48 36.6 C 87 16 136/87 H 98 - Physical Exam General Appearance: positive: No acute distress, Alert Eyes Bilateral: positive: PERRL, EOMI ENT: positive: No signs of dehydration Neck: positive: No JVD Respiratory: positive: No respiratory distress, Breath sounds nml Cardiovascular: positive: Regular rate & rhythm Abdomen: positive: Non-tender, No distention Neurologic/Psychiatric: positive: Oriented x3 Conclusion/Plan - Problem List (1) Food impaction of esophagus Conclusion/Plan: Egd with intent to remove food impaction. parq held and consent obtained Qualifiers: Encounter type: initial encounter Qualified Code(s): T18.128A - Food in esophagus causing other injury, initial encounter
[2020-10-20 22:57] LABS: BASOPHILS % (AUTO) 0.9 %; EOSINOPHILS % (AUTO) 6.6 %; HCT - HEMATOCRIT 39.1 % (42.0-52.0); HGB - HEMOGLOBIN 12.7 g/dL (14.0-18.0); LYMPHOCYTES % (AUTO) 58.5 %; MEAN CORPUSCULAR HEMOGLOBIN 30.5 pg (27.0-31.0); MEAN CORPUSCULAR HGB CONC 32.5 g/dL (32.0-36.0); MEAN PLATELET VOLUME 10.9 fL (7.4-11.4); MONOCYTES % (AUTO) 10.5 %; NEUTROPHILS % (AUTO) 23.2 %; PLT - PLATELET COUNT 146 10^3/uL (130-450); RED BLOOD COUNT 4.16 10^6/uL (4.70-6.10); RED CELL DISTRIBUTION WIDTH 15.8 % (12.0-15.0); WHITE BLOOD COUNT 13.9 x10^3/uL (4.8-10.8)
[2020-10-20 22:59] LABS: ABNORMAL LYMPHS % (MANUAL) 0 %; BAND NEUTROPHILS % (MANUAL) 0 %
[2020-10-20 23:00] LABS: CALCIUM 9.4 mg/dL (8.5-10.3); CREATININE 1.1 mg/dL (0.6-1.2); POTASSIUM 3.4 mmol/L (3.5-5.0)
[2020-10-20] MEDS ORDERED: ONDANSETRON 4 MG/2 ML VIAL ONE (23:12)
[2020-10-20] MEDS ORDERED: LACTATED RINGERS 1,000 ML IV ONE (23:18)
[2020-10-20 23:19] LABS: BASOPHILS # (MANUAL) 0.1 10^3/uL (0-0.1); BASOPHILS % (MANUAL) 1 %; EOSINOPHILS # (MANUAL) 0.8 10^3/uL (0-0.7); LYMPHOCYTES # (MANUAL) 8.8 10^3/uL (1.5-3.5); LYMPHOCYTES % (MANUAL) 63 %; MONOCYTES # (MANUAL) 1.1 10^3/uL (0.0-1.0); NEUTROPHILS # (MANUAL) 3.1 10^3/uL (1.5-6.6); PLATELET MORPHOLOGY NORMAL APPEARANCE (NORMAL); RBC MORPHOLOGY (MULTIPLE) NORMAL APPEARANCE (NORMAL)
[2020-10-20 23:20] LABS: DIFFERENTIAL COMMENT MANUAL DIFFERENTIAL; PLATELET ESTIMATE, MANUAL NORMAL (130-450,000) (NORMAL); WBC MORPHOLOGY (MULTIPLE) NORMAL APPEARANCE (NORMAL)
--- NOTE | 2020-10-20 23:21 | OPERATIVE REPORT ---
Operative Report - General Procedure Date: 10/20/20 Planned Procedure: EGD with intent to remove food impaction Pre-Op Diagnosis: food impaction Procedure Performed: EGD with removal food impaction Post Op Diagnosis: Normal esophagus. Food impaction - Procedure Note Primary Surgeon: alma paz md Anesthesia Technique: General ET tube Pathology: none Estimated Blood Loss (mL): 0 Drain/Tube Type: Other (none) Indications: food impaction with inability to swallow secretions and discomfort Findings: normal esophagus otherwise without inflammation, stricture, etc Complications: none - Other Other Information/Narrative: Juan Jose Rendon was properly identified brought to the operating room. General endotracheal anesthesia was induced on the stretcher. EGD scope was placed down to the food impaction. Fortunately he presented soon after the food impaction and the pork was not soft or tightly impacted. 2 pieces of sizable pork measuring 2 x 2 cm and approximately 3 x 4 cm was removed with a 4 prong device there was no injury. Esophagus was normal without inflammation stricture or mass. Patient recently had a normal EGD for similar problem. Stomach was briefly inspected. It appeared normal. Scope was withdrawn. He tolerated the procedure well.
[2020-10-20] MEDS ORDERED: ONDANSETRON 4 MG/2 ML VIAL IVP PRN (23:24)
[2020-10-20] MEDS ORDERED: HYDROmorphone 0.5 MG/0.5 ML SYRINGE IVP PRN (23:24)
[2020-10-20] MEDS ORDERED: NALOXONE 0.4 MG/ML VIAL IVP PRN (23:24)
[2020-10-20] MEDS ORDERED: ATROPINE ABBOJECT 1 MG/10 ML SYRINGE IVP PRN (23:24)
[2020-10-20] MEDS ORDERED: MORPHINE 2 MG/ML CARPUJECT IVP PRN (23:24)
[2020-10-20] MEDS ORDERED: fentaNYL 100 MCG/2 ML VIAL IVP PRN (23:24)
--- NOTE | 2020-10-20 23:37 | ANESTHESIA POST OP EVALUATION ---
Anesthesia Post Eval - Post Anesthesia Eval Vitals: Last Vital Signs Temp 36.6 C 10/20/20 23:25 Pulse 55 L 10/20/20 23:25 Resp 18 10/20/20 23:25 BP 139/84 H 10/20/20 23:25 Pulse Ox 99 10/20/20 23:25 CV Function Including HR & BP: Stable Pain Control: Satisfactory Nausea & Vomiting: Negative Mental Status: Baseline Respiratory Status: Airway Patent Hydration Status: Satisfactory Anesthesia Complications: None
[2020-10-20] MEDS ORDERED: LACTATED RINGERS 1,000 ML IV SCH (23:45)
[2020-10-21 00:16] VITALS: BP 125/85
== END 2020-10-20 22:31 | disposition home or self-care (01) ==
LOC: ED 20:38 → SDS 22:30
PROVIDERS: ATTEND Surgery
DX: T18.128A Food in esophagus causing other injury, initial encounter (principal); X58.XXXA Exposure to other specified factors, initial encounter; G47.30 Sleep apnea, unspecified; Z95.0 Presence of cardiac pacemaker
CPT/HCPCS: 36415; 43247; 80048; 85025; 99284; 99285; J0330; J7120

== ENCOUNTER 2021-02-04 20:53 | Observation (INO) | payer MEDICARE, MEDICAID ==
[2021-02-04] MEDS ORDERED: GLUCAGON 2 MG in DEXTROSE 5% 45 ML IV STA (21:29)
[2021-02-04] MEDS ORDERED: SODIUM CHLORIDE 0.9% 1,000 ML IV STA (21:29)
[2021-02-04] MEDS ORDERED: GLUCAGON 1 MG/ML VIAL ONE (21:48)
[2021-02-04] MEDS ORDERED: GLUCAGON 1 MG/ML VIAL IVP STA (21:56)
[2021-02-04 22:31] LABS: BASOPHILS # (AUTO) 0.1 10^3/uL (0.0-0.1); BASOPHILS % (AUTO) 0.6 %; EOSINOPHILS # (AUTO) 0.4 10^3/uL (0.0-0.7); EOSINOPHILS % (AUTO) 5.5 %; HCT - HEMATOCRIT 37.1 % (42.0-52.0); HGB - HEMOGLOBIN 11.8 g/dL (14.0-18.0); LYMPHOCYTES # (AUTO) 3.8 10^3/uL (1.5-3.5); MEAN CORPUSCULAR HEMOGLOBIN 28.7 pg (27.0-31.0); MEAN CORPUSCULAR HGB CONC 31.8 g/dL (32.0-36.0); MEAN CORPUSCULAR VOLUME 90.3 fL (80.0-94.0); MONOCYTES # (AUTO) 0.4 10^3/uL (0.0-1.0); MONOCYTES % (AUTO) 5.1 %; NEUTROPHILS # (AUTO) 3.3 10^3/uL (1.5-6.6); PLT - PLATELET COUNT 216 10^3/uL (130-450); RED BLOOD COUNT 4.11 10^6/uL (4.70-6.10); RED CELL DISTRIBUTION WIDTH 14.9 % (12.0-15.0)
[2021-02-04 22:45] LABS: ALBUMIN 3.9 g/dL (3.2-5.5); ALBUMIN/GLOBULIN RATIO 1.7 (1.0-2.2); BILIRUBIN,TOTAL 1.1 mg/dL (0.2-1.0); CALCIUM 9.2 mg/dL (8.5-10.3); CREATININE 0.8 mg/dL (0.6-1.2); POTASSIUM 3.9 mmol/L (3.5-5.0); TOTAL PROTEIN 6.2 g/dL (6.7-8.2)
--- NOTE | 2021-02-04 23:04 | ED Physician Documentation ---
History of Present Illness - Stated complaint Stated Complaint: FB IN THROAT - Chief complaint Chief Complaint: Heent - History obtained from History obtained from: Patient - Additonal information Additional information: PT comes to the ED with CC of meat stuck in esophagus. Pt states this has happened before, and he has needed endoscopic removal. Pt states he was eating pork chops tonight, and didn't chew the meat well, because he has no teeth. No breathing difficulty. Pt states he is spitting up saliva and any water he has tried to drink. He feels the sensation in his upper chest. Review of Systems Ten Systems: 10 systems reviewed and negative Constitutional: reports: Reviewed and negative Eyes: reports: Reviewed and negative Ears: reports: Reviewed and negative Nose: reports: Reviewed and negative Throat: reports: Reviewed and negative Cardiac: reports: Chest pain / pressure Respiratory: reports: Reviewed and negative GI: reports: Reviewed and negative : reports: Reviewed and negative Skin: reports: Reviewed and negative Musculoskeletal: reports: Reviewed and negative Neurologic: reports: Reviewed and negative Psychiatric: reports: Reviewed and negative Endocrine: reports: Reviewed and negative Immunocompromised: reports: Reviewed and negative PD PAST MEDICAL HISTORY - Past Medical History Past Medical History: Yes Cardiovascular: Hypertension, Other Respiratory: Sleep apnea Neuro: None Endocrine/Autoimmune: None GI: GERD, Ulcers : None HEENT: None Psych: Depression Musculoskeletal: None Derm: None - Past Surgical History Past Surgical History: Yes General: Appendectomy, Bowel surgery Ortho: Amputation Cardiovascular: Pacemaker - Present Medications Home Medications: Ambulatory Orders Medication Instructions Recorded Confirmed Pantoprazole [Protonix] 40 mg PO DAILY 04/22/15 02/05/21 Cyanocobalamin (Vitamin B-12) 1,000 mcg PO DAILY 06/09/16 02/05/21 [Vitamin B-12] Ibuprofen [Motrin] 600 mg PO Q6H PRN 07/21/16 02/05/21 Propranolol ER [Inderal LA] 80 mg PO DAILY 06/05/18 02/05/21 Sertraline HCl 150 mg PO DAILY 04/02/19 02/05/21 Aspirin Chewable [[facility] [place] 81 mg PO DAILY 10/20/20 02/05/21 Aspirin] Cholecalciferol (Vitamin D3) 50,000 unit PO Q7D 10/20/20 02/05/21 [Vitamin D] predniSONE [Prednisone] 100 mg PO DAILY PRN 02/05/21 02/05/21 - Allergies Allergies/Adverse Reactions: Allergies Allergy/AdvReac Type Severity Reaction Status Date / Time No Known Drug Allergies Allergy Verified 02/04/21 20:59 - Social History Does the pt smoke?: No Smoking Status: Never smoker Does the pt drink ETOH?: No Does the pt have substance abuse?: No - Immunizations Immunizations are current?: Yes - POLST Patient has POLST: No PD ED PE NORMAL - Vitals Vital signs reviewed: Yes - General General: Alert and oriented X 3, No acute distress, Well developed/nourished - HEENT HEENT: Atraumatic, PERRL, EOMI, Moist mucous membranes, Other (Clear speech, no drooling) - Neck Neck: Supple, no meningeal sign - Cardiac Cardiac: RRR, No murmur, Strong equal pulses - Respiratory Respiratory: No respiratory distress, Clear bilaterally - Abdomen Abdomen: Soft, Non tender, Non distended - Derm Derm: Warm and dry - Extremities Extremities: No deformity - Neuro Neuro: Alert and oriented X 3 - Psych Psych: Normal mood, Normal affect Results - Vitals Vitals: Vital Signs - 24 hr 02/04/21 20:55 Heart Rate 83 Respiratory 18 Rate Blood Pressure 128/89 H O2 Saturation 99 Oxygen O2 Source Room air - Labs Labs: Laboratory Tests 02/04/21 02/04/21 02/04/21 22:09 22:20 22:20 WBC 8.0 RBC 4.11 L Hgb 11.8 L Hct 37.1 L MCV 90.3 MCH 28.7 MCHC 31.8 L RDW 14.9 Plt Count 216 MPV 10.0 Neut # (Auto) 3.3 Lymph # (Auto) 3.8 H [place] # (Auto) 0.4 Eos # (Auto) 0.4 Baso # (Auto) 0.1 Absolute Nucleated RBC 0.00 Nucleated RBC % 0.0 Sodium 139 Potassium 3.9 Chloride 102 Carbon Dioxide 28 Anion Gap 9.0 BUN 21 H Creatinine 0.8 Estimated GFR (MDRD) 98 Glucose 111 H Calcium 9.2 Total Bilirubin 1.1 H AST 18 ALT 22 Alkaline Phosphatase 68 Total Protein 6.2 L Albumin 3.9 Globulin 2.3 Albumin/Globulin Ratio 1.7 Lipase 25 Nasal Adenovirus (PCR) NOT DETECTED Nasal B. parapertussis DNA (PCR) NOT DETECTED Nasal Coronavir 229E PCR NOT DETECTED Nasal Coronavir HKU1 PCR NOT DETECTED Nasal Coronavir NL63 PCR NOT DETECTED Nasal Coronavir OC43 PCR NOT DETECTED Nasal Enterovir/Rhinovir PCR NOT DETECTED Nasal Influenza B PCR NOT DETECTED Nasal Influenza A PCR NOT DETECTED Nasal Parainfluen 1 PCR NOT DETECTED Nasal Parainfluen 2 PCR NOT DETECTED Nasal Parainfluen 3 PCR NOT DETECTED Nasal Parainfluen 4 PCR NOT DETECTED Nasal RSV (PCR) NOT DETECTED Nasal B.pertussis DNA PCR NOT DETECTED Nasal C.pneumoniae (PCR) NOT DETECTED Herman Human Metapneumo PCR NOT DETECTED Nasal M.pneumoniae (PCR) NOT DETECTED Nasal SARS-CoV-2 (PCR) NOT DETECTED PD MEDICAL DECISION MAKING - ED course Complexity details: reviewed old records, reviewed results, re-evaluated patient, considered differential, d/w patient, d/w sap consultant ED course: I reviewed pt's records, and found that pt had a similar situation in October, with ultimate endoscopy. I gave him IV fluids and IV glucagon in the ED, with no relief after an hour. I spoke with Dr. East of surgery, who agreed to admit the pt. Departure - Departure Disposition: ED Place in Observation Clinical Impression: Food impaction of esophagus Qualifiers: Encounter type: initial encounter Qualified Code(s): T18.128A - Food in esophagus causing other injury, initial encounter Condition: Good Discharge Date/Time: 02/04/21 23:49
[2021-02-04] MEDS ORDERED: SODIUM CHLORIDE FLUSH 0.9% 10 ML SYRINGE IVP PRN (23:11)
[2021-02-04] MEDS ORDERED: ACETAMINOPHEN 325 MG TABLET PO PRN (23:15)
[2021-02-04] MEDS ORDERED: ONDANSETRON ODT 4 MG TABLET TL PRN (23:15)
[2021-02-04] MEDS ORDERED: ONDANSETRON 4 MG/2 ML VIAL IVP PRN (23:15)
[2021-02-04] MEDS ORDERED: PROCHLORPERAZINE 10 MG/2 ML VIAL IVP PRN (23:15)
[2021-02-04 23:25] LABS: B. PARAPERTUSSIS- RESP PCR PAN NOT DETECTED; B. PERTUSSIS- RESP PCR PANEL NOT DETECTED; C. PNEUMONIAE- RESP PCR PANEL NOT DETECTED; CORONAVIRUS 229E-RESP PCR NOT DETECTED; CORONAVIRUS HKU1-RESP PCR NOT DETECTED; CORONAVIRUS NL63-RESP PCR NOT DETECTED; CORONAVIRUS OC43-RESP PCR NOT DETECTED; HUMAN METAPNEUMOVIRUS NOT DETECTED; INFLUENZA A- RESP PCR PANEL NOT DETECTED; INFLUENZA B - RESP PCR PANEL NOT DETECTED; M. PNEUMONIAE- RESP PCR PANEL NOT DETECTED; PARAINFLUENZA VIRUS 1 NOT DETECTED; PARAINFLUENZA VIRUS 2 NOT DETECTED; PARAINFLUENZA VIRUS 3 NOT DETECTED; PARAINFLUENZA VIRUS 4 NOT DETECTED; RHINOVIRUS/ENTEROVIRUS NOT DETECTED; RSV- RESP PCR PANEL NOT DETECTED; SARS-CoV-2 -RESP PCR PANEL NOT DETECTED
[2021-02-05] MEDS: LACTATED RINGERS 1,000 ML IV SCH ×2 (00:07→10:05)
[2021-02-05] MEDS: SODIUM CHLORIDE FLUSH 0.9% 10 ML SYRINGE IVP SCH ×2 (00:33→09:57)
--- NOTE | 2021-02-05 07:50 | HISTORY & PHYSICAL EXAMINATION ---
Chief Complaint - Chief Complaint Chief Complaint: food stuck again History of Present Illness - Admitted From Admitted From:: ED - History Obtained From Records Reviewed: yes History obtained from: pt Exam Limitations: none - History of Present Illness HPI Comment/Other: Known to surgery service. He has poor esophageal motility and eats large pieces of pork. Feeling of food stuck last pm. Improved this am. History - Past Medical History Cardiovascular: reports: Hypertension, Other Respiratory: reports: Sleep apnea Neuro: reports: None Endocrine/Autoimmune: reports: None GI: reports: GERD, Ulcers, Other : reports: None HEENT: reports: None Psych: reports: Depression Musculoskeletal: reports: None Derm: reports: None MRSA Hx?: No - Past Surgical History General: reports: Appendectomy, Bowel surgery Ortho: reports: Amputation Cardiovascular: reports: Pacemaker - POLST Patient has POLST: No Meds/Allgy - Home Medications Home Medications: Ambulatory Orders Medication Instructions Recorded Confirmed Pantoprazole [Protonix] 40 mg PO DAILY 04/22/15 01/08/20 Cyanocobalamin (Vitamin B-12) 1 tab PO DAILY 06/09/16 01/08/20 [Vitamin B-12] Ibuprofen [Motrin] 600 mg PO Q6H PRN 07/21/16 01/08/20 Propranolol ER [Inderal LA] 80 mg PO DAILY 06/05/18 01/08/20 Sertraline HCl 150 mg PO DAILY 04/02/19 01/08/20 Aspirin Chewable [[facility] [place] 81 mg PO DAILY 10/20/20 10/20/20 Aspirin] Cholecalciferol (Vitamin D3) 50,000 unit PO 10/20/20 10/20/20 [Vitamin D] - Allergies Allergies/Adverse Reactions: Allergies Allergy/AdvReac Type Severity Reaction Status Date / Time No Known Drug Allergies Allergy Verified 02/04/21 20:59 Review of Systems - Other Findings Other Findings: 10 pt ros as above otherwise unremarkable Exam - Vital Signs Reviewed Vital Signs: Yes Vital Signs: Vital Signs x48h Temp Pulse Resp BP BP Pulse Ox 02/05/21 07:30 36.2 C L 60 16 140/80 H 96 02/05/21 00:12 36.8 C 18 148/77 H 100 - Physical Exam General Appearance: positive: No acute distress, Alert Eyes Bilateral: positive: PERRL, EOMI, No scleral icterus ENT: positive: No signs of dehydration Neck: positive: No JVD Respiratory: positive: No respiratory distress, Breath sounds nml Cardiovascular: positive: Regular rate & rhythm Abdomen: positive: Non-tender, No distention Neurologic/Psychiatric: positive: Oriented x3 Conclusion/Plan - Problem List (1) Food impaction of esophagus Conclusion/Plan: History esophageal dysmotility and eating large pieces of pork. Ate pork again last pm with feeling stuck. Improved this am. plan clears and if not doing well EGD this afternoon. Qualifiers: Encounter type: initial encounter Qualified Code(s): T18.128A - Food in esophagus causing other injury, initial encounter - Lab Results Fish Bones: 02/04/21 22:20 02/04/21 22:20
--- NOTE | 2021-02-05 11:10 | PHARMACY PROGRESS NOTE ---
- Best Possible Medication History Admit Date and Time: 02/04/21 4050 Processed by: Pharmacy Medication History completed: Yes Patient Interview: Completed Secondary Source(s): Pharmacy records, Insurance records As the person ultimately responsible for medication therapy, providers are able to order a medication from an existing home medication list in [facility] via the "Reconcile Routine" prior to Confirmation of that medication by shipping support. Such practice is discouraged except when the physician, in their clinical judgment, deems that a medical need exists for a medication without regard to previous use.
--- NOTE | 2021-02-05 11:33 | ANESTHESIA ---
Pre-Anesthesia VS, & Labs - Diagnosis food bolus - Procedure EGD Vital Signs: Temp Pulse Resp BP Pulse Ox 37.4 C 63 16 150/90 H 97 02/05/21 11:27 02/05/21 11:27 02/05/21 11:27 02/05/21 11:27 02/05/21 11:27 Height: 6 ft 8 in Weight (kg): 133.5 kg Body Mass Index: 32.3 BMI Classification: Obese - NPO >8 hours - Lab Results Current Lab Results: Laboratory Tests 02/04/21 22:20: Sodium 139, Potassium 3.9, Chloride 102, Carbon Dioxide 28, Anion Gap 9.0, BUN 21 H, Creatinine 0.8, Estimated GFR (MDRD) 98, Glucose 111 H, Calcium 9.2, Total Bilirubin 1.1 H, AST 18, ALT 22, Alkaline Phosphatase 68, Total Protein 6.2 L, Albumin 3.9, Globulin 2.3, Albumin/Globulin Ratio 1.7, Lipase 25 02/04/21 22:20: WBC 8.0, RBC 4.11 L, Hgb 11.8 L, Hct 37.1 L, MCV 90.3, MCH 28.7, MCHC 31.8 L, RDW 14.9, Plt Count 216, MPV 10.0, Neut # (Auto) 3.3, Lymph # (Auto) 3.8 H, [place] # (Auto) 0.4, Eos # (Auto) 0.4, Baso # (Auto) 0.1, Absolute Nucleated RBC 0.00, Nucleated RBC % 0.0 Fish Bones: 02/04/21 22:20 02/04/21 22:20 Home Medications and Allergies Home Medications: Ambulatory Orders predniSONE [Prednisone] 100 mg PO DAILY PRN 02/05/21 Active Medications Acetaminophen (Acetaminophen 325 Mg Tablet) 650 mg PO Q4HR PRN PRN Reason: Pain 1 to 4 Lactated Ringer's (Lr) 1,000 mls @ 100 mls/hr IV .Q10H SHANELL Last Admin: 02/05/21 10:05 Dose: 100 mls/hr Documented by: Ondansetron HCl (Ondansetron Odt 4 Mg Tablet) 4 mg TL Q6HR PRN PRN Reason: Nausea / Vomiting Ondansetron HCl (Ondansetron 4 Mg/2 Ml Vial) 4 mg IVP Q6HR PRN PRN Reason: Nausea / Vomiting Prochlorperazine Edisylate (Prochlorperazine 10 Mg/2 Ml Vial) 10 mg IVP Q6HR PRN PRN Reason: Nausea / Vomiting Sodium Chloride (Sodium Chloride Flush 0.9% 10 Ml Syringe) 10 ml IVP PRN PRN PRN Reason: NEEDED PER PROVIDER ORDERS Sodium Chloride (Sodium Chloride Flush 0.9% 10 Ml Syringe) 10 ml IVP 0100,0900,1700 SHANELL Last Admin: 02/05/21 09:57 Dose: Not Given Documented by: Pantoprazole [Protonix] 40 mg PO DAILY 04/22/15 Cyanocobalamin (Vitamin B-12) [Vitamin B-12] 1,000 mcg PO DAILY 06/09/16 Ibuprofen [Motrin] 600 mg PO Q6H PRN 07/21/16 Propranolol ER [Inderal LA] 80 mg PO DAILY 06/05/18 Sertraline HCl 150 mg PO DAILY 04/02/19 Aspirin Chewable [[facility] [place]alo Aspirin] 81 mg PO DAILY 10/20/20 Cholecalciferol (Vitamin D3) [Vitamin D] 50,000 unit PO Q7D 10/20/20 predniSONE [Prednisone] 100 mg PO DAILY PRN 02/05/21 Allergies/Adverse Reactions: Allergies Allergy/AdvReac Type Severity Reaction Status Date / Time No Known Drug Allergies Allergy Verified 02/04/21 20:59 Anes History & Medical History - Anesthetic History Anesthesia Complications: reports: No previous complications Family history of Anesthesia Complications: Denies Family history of Malignant Hyperthermia: Denies - Medical History Cardiovascular: reports: Hypertension, Other Pulmonary: reports: Sleep apnea Gastrointestinal: reports: GERD, Ulcers, Other Urinary: reports: None Neuro: reports: None Musculoskeletal: reports: None Endocrine/Autoimmune: reports: None Blood Disorders: reports: Anemia Skin: reports: None Smoking Status: Never smoker History of Cancer?: Yes (lymphoma, currently recieving chemo) - Surgical History General: reports: Appendectomy, Bowel surgery Cardiothoracic: reports: Pacemaker, Other (port placement) Orthopedic: reports: Amputation Exam General: Alert, Oriented x3, Cooperative Dental: Other (edentulous) Mouth Openin Fingerbreadth Neck Mobility: Normal Mallampati classification: II Thyromental Distance: 4-6 cm Respiratory: Lungs clear Cardiovascular: Regular rate Plan Anesthesia Type: General Consent for Procedure(s) Verified and Reviewed: Yes Code Status: Attempt Resuscitation ASA classification: 3-Severe systemic disease Is this case an emergency?: No
[2021-02-05] MEDS ORDERED: LIDOCAINE-MPF 2% 5 ML VIAL ONE (11:34)
[2021-02-05] MEDS ORDERED: SUCCINYLCHOLINE 200 MG/10 ML VIAL ONE (11:34)
[2021-02-05] MEDS ORDERED: PROPOFOL 200 MG/20 ML VIAL IVP ONE (11:34)
[2021-02-05] MEDS ORDERED: MIDAZOLAM 2 MG/2 ML VIAL ONE (11:35)
[2021-02-05] MEDS ORDERED: fentaNYL 100 MCG/2 ML VIAL ONE (11:35)
[2021-02-05] MEDS ORDERED: ePHEDrine 50 MG/ML VIAL IVP PRN (11:46)
[2021-02-05] MEDS ORDERED: ATROPINE ABBOJECT 1 MG/10 ML SYRINGE IVP PRN (11:46)
[2021-02-05] MEDS ORDERED: fentaNYL 100 MCG/2 ML VIAL IVP PRN (11:46)
[2021-02-05] MEDS ORDERED: NALOXONE 0.4 MG/ML VIAL IVP PRN (11:46)
[2021-02-05] MEDS ORDERED: ONDANSETRON 4 MG/2 ML VIAL IVP PRN (11:46)
[2021-02-05] MEDS ORDERED: HYDROmorphone 0.5 MG/0.5 ML SYRINGE IVP PRN (11:46)
[2021-02-05] MEDS ORDERED: MORPHINE 2 MG/ML CARPUJECT IVP PRN (11:46)
[2021-02-05] MEDS ORDERED: LACTATED RINGERS 1,000 ML IV SCH (12:00)
[2021-02-05] MEDS ORDERED: LACTATED RINGERS 1,000 ML IV ONE (12:50)
--- NOTE | 2021-02-05 13:23 | ANESTHESIA POST OP EVALUATION ---
Anesthesia Post Eval - Post Anesthesia Eval Vitals: Last Vital Signs Temp 36.6 C 02/05/21 13:11 Pulse 63 02/05/21 13:11 Resp 15 02/05/21 13:11 BP 138/86 H 02/05/21 13:11 Pulse Ox 98 02/05/21 13:11 CV Function Including HR & BP: Stable Pain Control: Satisfactory Nausea & Vomiting: Negative Mental Status: Baseline Respiratory Status: Airway Patent Hydration Status: Satisfactory Anesthesia Complications: None
--- NOTE | 2021-02-05 16:53 | Discharge Plan ---
Discharge Plan Problem Reviewed?: Yes Disposition: Home, Self Care Condition: Serious Diet: Soft Activity Restrictions: No Restrictions Shower Restrictions: No Driving Restrictions: No Plan of Treatment: Had EGD with removal esophageal food impaction Assessment: Doing well after EGD No Smoking: If you smoke, Please STOP! Call for help. Follow-up with: Treva Watts MD [Primary Care Provider] -
--- NOTE | 2021-02-05 16:55 | DISCHARGE SUMMARY ---
"Discharge Summary Admit Date: 02/04/21 Discharge Date: 02/05/21 Discharging Provider: alma paz md Code Status: Attempt Resuscitation Condition at Discharge: Good Discharge Facility Name: [facility] - DIAGNOSES Admission Diagnoses: esophageal food impaction Discharge Diagnoses with Status of Each Condition: home in good condition after EGD - HPI History of Present Illness: Food stuck. Seen and evaluated late evening 02/04/2021. EGD 02/05/2021 with removal 4 large pieces of pork. Normal EGD otherwise - CONSULTS | PROCEDURES Procedures: as above - HOSPITAL COURSE Hospital Course: tolerated procedure well. tolerating full liquid diet well. home in good condition. - ALLERGIES Allergies/Adverse Reactions: Allergies Allergy/AdvReac Type Severity Reaction Status Date / Time No Known Drug Allergies Allergy Verified 02/04/21 20:59 - MEDICATIONS Home Medications: Ambulatory Orders Medication Instructions Recorded Confirmed Pantoprazole [Protonix] 40 mg PO DAILY 04/22/15 02/05/21 Cyanocobalamin (Vitamin B-12) 1,000 mcg PO DAILY 06/09/16 02/05/21 [Vitamin B-12] Ibuprofen [Motrin] 600 mg PO Q6H PRN 07/21/16 02/05/21 Propranolol ER [Inderal LA] 80 mg PO DAILY 06/05/18 02/05/21 Sertraline HCl 150 mg PO DAILY 04/02/19 02/05/21 Aspirin Chewable [[place] 81 mg PO DAILY 10/20/20 02/05/21 Aspirin] Cholecalciferol (Vitamin D3) 50,000 unit PO Q7D 10/20/20 02/05/21 [Vitamin D] predniSONE [Prednisone] 100 mg PO DAILY PRN 02/05/21 02/05/21 - PHYSICAL EXAM AT DISCHARGE General Appearance: positive: Alert Eyes Bilateral: positive: PERRL, EOMI, No scleral icterus ENT: positive: No signs of dehydration Neck: positive: No JVD Respiratory: positive: No respiratory distress Abdomen: positive: Non-tender, No distention Neurologic/Psychiatric: positive: Oriented x3 - LABS Result Diagrams: 02/04/21 22:20 02/04/21 22:20"
[2021-02-05 17:11] VITALS: BP 131/79
== END 2021-02-05 17:56 | disposition home or self-care (01) ==
LOC: ED 20:53 → MS2 23:11
PROVIDERS: ADMIT Surgery; ATTEND Surgery
PROC: 0DC38ZZ Extirpation of Matter from Lower Esophagus, Via Natural or Artificial Opening Endoscopic (ICD-10-PCS; principal; 2021-02-04)
DX: T18.128A Food in esophagus causing other injury, initial encounter (principal); X58.XXXA Exposure to other specified factors, initial encounter; Z20.822 Contact with and (suspected) exposure to COVID-19; Z68.32 Body mass index [BMI] 32.0-32.9, adult; E66.9 Obesity, unspecified; G47.30 Sleep apnea, unspecified; K21.9 Gastro-esophageal reflux disease without esophagitis; C85.90 Non-Hodgkin lymphoma, unspecified, unspecified site; Z95.0 Presence of cardiac pacemaker
CPT/HCPCS: 36415; 43247; 80053; 83690; 85025; 87631; 96361; 96374; 99284; 99285; A9270; G0378; J0330; J7120; 0202U

== ENCOUNTER 2021-02-15 19:16 | Day surgery (SDC) | payer MEDICARE, MEDICAID ==
[2021-02-15] MEDS ORDERED: GLUCAGON 1 MG/ML VIAL IVP STA (20:06)
[2021-02-15 20:30] LABS: BASOPHILS # (AUTO) 0.1 10^3/uL (0.0-0.1); BASOPHILS % (AUTO) 1.3 %; EOSINOPHILS # (AUTO) 0.3 10^3/uL (0.0-0.7); EOSINOPHILS % (AUTO) 5.1 %; HCT - HEMATOCRIT 39.1 % (42.0-52.0); HGB - HEMOGLOBIN 12.4 g/dL (14.0-18.0); LYMPHOCYTES # (AUTO) 3.8 10^3/uL (1.5-3.5); MEAN CORPUSCULAR HEMOGLOBIN 28.2 pg (27.0-31.0); MEAN CORPUSCULAR HGB CONC 31.7 g/dL (32.0-36.0); MEAN CORPUSCULAR VOLUME 88.9 fL (80.0-94.0); MEAN PLATELET VOLUME 10.3 fL (7.4-11.4); MONOCYTES # (AUTO) 0.8 10^3/uL (0.0-1.0); MONOCYTES % (AUTO) 12.5 %; NEUTROPHILS # (AUTO) 1.3 10^3/uL (1.5-6.6); NEUTROPHILS % (AUTO) 20.9 %; PLT - PLATELET COUNT 215 10^3/uL (130-450); RED CELL DISTRIBUTION WIDTH 15.1 % (12.0-15.0); WHITE BLOOD COUNT 6.3 x10^3/uL (4.8-10.8)
[2021-02-15 20:40] LABS: CALCIUM 9.7 mg/dL (8.5-10.3); CREATININE 1.7 mg/dL (0.6-1.2); POTASSIUM 3.9 mmol/L (3.5-5.0)
--- NOTE | 2021-02-15 20:49 | ED Physician Documentation ---
History of Present Illness - Stated complaint Stated Complaint: FOOD STUCK IN THROAT - Chief complaint Chief Complaint: Heent - History obtained from History obtained from: Patient - Additonal information Additional information: 60yM with pmh lymphoma on chemo p/w food bolus sensation since 1600. patient was eating cinnamon roll and took large bite and it became stuck in throat. he now has dysphagia for liquids and solids. denies soa, cough. tolerating secretions. Review of Systems Throat: reports: Swallowed foreign body PD PAST MEDICAL HISTORY - Past Medical History Cardiovascular: Hypertension, Other Respiratory: Sleep apnea Neuro: None Endocrine/Autoimmune: None GI: GERD, Ulcers : None HEENT: None Psych: Depression Musculoskeletal: None Derm: None - Past Surgical History Past Surgical History: Yes General: Appendectomy, Bowel surgery Ortho: Amputation Cardiovascular: Pacemaker - Present Medications Home Medications: Ambulatory Orders Medication Instructions Recorded Confirmed Pantoprazole [Protonix] 40 mg PO DAILY 04/22/15 02/05/21 Cyanocobalamin (Vitamin B-12) 1,000 mcg PO DAILY 06/09/16 02/05/21 [Vitamin B-12] Ibuprofen [Motrin] 600 mg PO Q6H PRN 07/21/16 02/05/21 Propranolol ER [Inderal LA] 80 mg PO DAILY 06/05/18 02/05/21 Sertraline HCl 150 mg PO DAILY 04/02/19 02/05/21 Aspirin Chewable [St Gonzalo 81 mg PO DAILY 10/20/20 02/05/21 Aspirin] Cholecalciferol (Vitamin D3) 50,000 unit PO Q7D 10/20/20 02/05/21 [Vitamin D3] predniSONE [Prednisone] 100 mg PO DAILY PRN 02/05/21 02/05/21 - Allergies Allergies/Adverse Reactions: Allergies Allergy/AdvReac Type Severity Reaction Status Date / Time No Known Drug Allergies Allergy Verified 02/15/21 19:19 - Social History Does the pt smoke?: No Smoking Status: Never smoker Does the pt drink ETOH?: No Does the pt have substance abuse?: No - Immunizations Immunizations are current?: Yes - POLST Patient has POLST: No PD ED PE NORMAL - Vitals Vital signs reviewed: Yes - General General: Alert and oriented X 3, No acute distress, Well developed/nourished - HEENT HEENT: Atraumatic, PERRL, EOMI, Pharynx benign - Neck Neck: Supple, no meningeal sign - Cardiac Cardiac: RRR - Respiratory Respiratory: No respiratory distress, Clear bilaterally - Derm Derm: Normal color, Warm and dry Results - Vitals Vitals: Vital Signs - 24 hr 02/15/21 02/15/21 02/15/21 19:19 21:49 22:08 Temperature 36.5 C 36.5 C Heart Rate 73 76 76 Heart Rate [ Brachial] Respiratory 16 17 17 Rate Blood Pressure 126/90 H 144/104 H 144/104 H Blood Pressure [Left Brachial artery] O2 Saturation 100 98 98 02/15/21 02/15/21 02/15/21 22:40 23:13 23:15 Temperature 37.9 C Heart Rate 77 82 90 Heart Rate [ Brachial] Respiratory 17 18 20 Rate Blood Pressure 147/93 H 134/84 H 141/88 H Blood Pressure [Left Brachial artery] O2 Saturation 98 98 98 02/15/21 02/15/21 02/15/21 23:20 23:26 23:30 Temperature 37.7 C Heart Rate 96 89 87 Heart Rate [ Brachial] Respiratory 15 20 17 Rate Blood Pressure 138/93 H 124/83 H 120/77 Blood Pressure [Left Brachial artery] O2 Saturation 96 92 94 02/15/21 02/15/21 02/15/21 23:36 23:40 23:46 Temperature Heart Rate 81 79 77 Heart Rate [ Brachial] Respiratory 18 11 L 18 Rate Blood Pressure 126/80 120/79 129/80 Blood Pressure [Left Brachial artery] O2 Saturation 93 94 94 02/15/21 02/16/21 02/16/21 23:55 00:09 00:15 Temperature 37.4 C Heart Rate Heart Rate [ 72 70 Brachial] Respiratory 16 Rate Blood Pressure Blood Pressure 128/77 [Left Brachial artery] O2 Saturation 96 98 02/16/21 02/16/21 02/16/21 00:30 00:45 01:00 Temperature Heart Rate 69 69 70 Heart Rate [ Brachial] Respiratory Rate Blood Pressure 109/54 L 102/56 L 117/68 Blood Pressure [Left Brachial artery] O2 Saturation 95 94 93 02/16/21 02/16/21 01:15 01:45 Temperature Heart Rate 66 69 Heart Rate [ Brachial] Respiratory Rate Blood Pressure 109/54 L 124/70 Blood Pressure [Left Brachial artery] O2 Saturation 94 94 Oxygen O2 Source Room air - Labs Labs: Laboratory Tests 02/15/21 02/15/21 02/15/21 20:27 20:27 20:55 WBC 6.3 RBC 4.40 L Hgb 12.4 L Hct 39.1 L MCV 88.9 MCH 28.2 MCHC 31.7 L RDW 15.1 H Plt Count 215 MPV 10.3 Neut # (Auto) 1.3 L Lymph # (Auto) 3.8 H [place] # (Auto) 0.8 Eos # (Auto) 0.3 Baso # (Auto) 0.1 Absolute Nucleated RBC 0.00 Nucleated RBC % 0.0 PT INR Sodium 140 Potassium 3.9 Chloride 103 Carbon Dioxide 28 Anion Gap 9.0 BUN 14 Creatinine 1.7 H Estimated GFR (MDRD) 41 L Glucose 116 H Calcium 9.7 Nasal Adenovirus (PCR) NOT DETECTED Nasal B. parapertussis DNA (PCR) NOT DETECTED Nasal Coronavir 229E PCR NOT DETECTED Nasal Coronavir HKU1 PCR NOT DETECTED Nasal Coronavir NL63 PCR NOT DETECTED Nasal Coronavir OC43 PCR NOT DETECTED Nasal Enterovir/Rhinovir PCR NOT DETECTED Nasal Influenza B PCR NOT DETECTED Nasal Influenza A PCR NOT DETECTED Nasal Parainfluen 1 PCR NOT DETECTED Nasal Parainfluen 2 PCR NOT DETECTED Nasal Parainfluen 3 PCR NOT DETECTED Nasal Parainfluen 4 PCR NOT DETECTED Nasal RSV (PCR) NOT DETECTED Nasal B.pertussis DNA PCR NOT DETECTED Nasal C.pneumoniae (PCR) NOT DETECTED Herman Human Metapneumo PCR NOT DETECTED Nasal M.pneumoniae (PCR) NOT DETECTED Nasal SARS-CoV-2 (PCR) NOT DETECTED 02/15/21 21:12 WBC RBC Hgb Hct MCV MCH MCHC RDW Plt Count MPV Neut # (Auto) Lymph # (Auto) [place] # (Auto) Eos # (Auto) Baso # (Auto) Absolute Nucleated RBC Nucleated RBC % PT 12.5 INR 1.1 Sodium Potassium Chloride Carbon Dioxide Anion Gap BUN Creatinine Estimated GFR (MDRD) Glucose Calcium Nasal Adenovirus (PCR) Nasal B. parapertussis DNA (PCR) Nasal Coronavir 229E PCR Nasal Coronavir HKU1 PCR Nasal Coronavir NL63 PCR Nasal Coronavir OC43 PCR Nasal Enterovir/Rhinovir PCR Nasal Influenza B PCR Nasal Influenza A PCR Nasal Parainfluen 1 PCR Nasal Parainfluen 2 PCR Nasal Parainfluen 3 PCR Nasal Parainfluen 4 PCR Nasal RSV (PCR) Nasal B.pertussis DNA PCR Nasal C.pneumoniae (PCR) Herman Human Metapneumo PCR Nasal M.pneumoniae (PCR) Nasal SARS-CoV-2 (PCR) PD MEDICAL DECISION MAKING - ED course ED course: Attempted administration of glucagon then rapid drinking soda and pop rocks without success X 3. d/w Dr. Christine who will come in for bolus retrieval. Departure - Departure Disposition: ED Transfer to [facility] Clinical Impression: Food bolus obstruction of intestine Condition: Stable Discharge Date/Time: 02/15/21 22:52
[2021-02-15 21:24] LABS: INR 1.1 (0.8-1.2); PT - PROTHROMBIN TIME 12.5 secs (9.9-12.6)
[2021-02-15 21:53] LABS: B. PARAPERTUSSIS- RESP PCR PAN NOT DETECTED; B. PERTUSSIS- RESP PCR PANEL NOT DETECTED; C. PNEUMONIAE- RESP PCR PANEL NOT DETECTED; CORONAVIRUS 229E-RESP PCR NOT DETECTED; CORONAVIRUS HKU1-RESP PCR NOT DETECTED; CORONAVIRUS NL63-RESP PCR NOT DETECTED; CORONAVIRUS OC43-RESP PCR NOT DETECTED; HUMAN METAPNEUMOVIRUS NOT DETECTED; INFLUENZA A- RESP PCR PANEL NOT DETECTED; INFLUENZA B - RESP PCR PANEL NOT DETECTED; M. PNEUMONIAE- RESP PCR PANEL NOT DETECTED; PARAINFLUENZA VIRUS 1 NOT DETECTED; PARAINFLUENZA VIRUS 2 NOT DETECTED; PARAINFLUENZA VIRUS 3 NOT DETECTED; PARAINFLUENZA VIRUS 4 NOT DETECTED; RHINOVIRUS/ENTEROVIRUS NOT DETECTED; RSV- RESP PCR PANEL NOT DETECTED; SARS-CoV-2 -RESP PCR PANEL NOT DETECTED
--- NOTE | 2021-02-15 21:53 | SURGERY HX AND PHYSICAL(T) ---
Surgical History & Physical - Chief Complaint/HPI Chief Complaint: food stuck in esophagus since 1600 today History of Present Illness: This 60-year-old male has a history of at least 4 episodes of food impaction in the esophagus over the past year. He states that he gets in a hurry and tries to eat too fast. His last EGD with removal of impacted food was [address] East removed pieces of pork from his esophagus. After the removal of the pork the patient's esophagus was noted to be normal. The patient said that this afternoon he took several bites of a cinnamon roll and the last bite was too large and he experienced a sensation of food stuck once again. 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 He had Rituxan and bendamustine chemotherapy x6 cycles completed in September 2012. From the last note in the chart in 2019 he had a normal CBC and no evidence of recurrence. The patient however states that he continues to have lymphoma/leukemia and has a port on his right anterior chest wall that he says is used for chemotherapy. He says he is not receiving his chemotherapy here. - PMH/PSH/Social Hx Does the pt have a hx of MRSA?: No Neurological History: None Eyes, Ears, Nose, Throat: None Cardiovascular: Hypertension, Other Respiratory: Sleep apnea Skin: None Endocrine/Autoimmune: None Gastrointestinal: GERD, Ulcers Urinary: None Musculoskeletal: None Blood Disorders: Anemia Psychiatric: Depression General: Appendectomy, Bowel surgery Orthopedic: Amputation Cardiothoracic: Pacemaker Smoking Status: Never smoker Does the pt drink ETOH?: No Does the pt have substance abuse?: No - Home Meds and Allergies Home Medications: Pantoprazole [Protonix] 40 mg PO DAILY 04/22/15 Cyanocobalamin (Vitamin B-12) [Vitamin B-12] 1,000 mcg PO DAILY 06/09/16 Ibuprofen [Motrin] 600 mg PO Q6H PRN 07/21/16 Propranolol ER [Inderal LA] 80 mg PO DAILY 06/05/18 Sertraline HCl 150 mg PO DAILY 04/02/19 Aspirin Chewable [St Gonzalo Aspirin] 81 mg PO DAILY 10/20/20 Cholecalciferol (Vitamin D3) [Vitamin D] 50,000 unit PO Q7D 10/20/20 predniSONE [Prednisone] 100 mg PO DAILY PRN 02/05/21 Allergies/Adverse Reactions: Allergies Allergy/AdvReac Type Severity Reaction Status Date / Time No Known Drug Allergies Allergy Verified 02/15/21 19:19 - Vital Signs Heart Rate: 76 Blood Pressure: 144/104 Temperature: 36.5 C Respiratory Rate: 17 O2 Saturation: 98 Weight (kg): 129.3 kg Height: 2.03 m - Physical Exam General Appearance: positive: No acute distress Eyes Bilatera: positive: Normal inspection ENT: positive: ENT inspection nml Neck: positive: Nml inspection, Trachea midline. negative: Lymphadenopathy (R), Lymphadenopathy (L) Respiratory: positive: No respiratory distress Cardiovascular: positive: Regular rate & rhythm Peripheral Pulses: positive: 2+ Abdomen: positive: Non-tender, No distention, Other (Transverse right upper quadrant scar from previous colon resection.) - Patient Review Patient Review: Problems were reviewed with the patient during this visit. Medications were reviewed with the patient during this visit. Allergies were reviewed this patient during this visit. Pertinent Tests Reviewed: All pertitent test for this patient were reviewed. - Assessment & Plan Assessment and Plan: The patient will be taken to the operating room where he will receive general anesthesia and EGD will be done with removal of the impacted food bolus. The patient was counseled that he must stop taking such large bites of food and he needs to take small bites and chew his food carefully. It is noted that he does not have any dentures currently. He says he has an appointment next week to have implants put in that will help him chew food.
[2021-02-15] MEDS ORDERED: PROPOFOL 200 MG/20 ML VIAL IVP ONE ×2 (22:22→22:57)
[2021-02-15] MEDS ORDERED: DEXAMETHASONE 4 MG/ML VIAL ONE (22:22)
[2021-02-15] MEDS ORDERED: SUCCINYLCHOLINE 200 MG/10 ML VIAL ONE (22:22)
[2021-02-15] MEDS ORDERED: ONDANSETRON 4 MG/2 ML VIAL ONE (22:22)
[2021-02-15] MEDS ORDERED: LIDOCAINE-MPF 2% 5 ML VIAL ONE (22:22)
--- NOTE | 2021-02-15 22:32 | ANESTHESIA ---
Pre-Anesthesia VS, & Labs - Diagnosis food bolus - Procedure EGD Vital Signs: Temp Pulse Resp BP Pulse Ox 36.5 C 76 17 144/104 H 98 02/15/21 22:08 02/15/21 22:08 02/15/21 22:08 02/15/21 22:08 02/15/21 22:08 Height: 6 ft 8 in Weight (kg): 129.3 kg Body Mass Index: 31.3 BMI Classification: Obese - NPO Last Food Intake: 1630 - Lab Results Current Lab Results: Laboratory Tests 02/15/21 21:12: PT 12.5, INR 1.1 02/15/21 20:27: Sodium 140, Potassium 3.9, Chloride 103, Carbon Dioxide 28, Anion Gap 9.0, BUN 14, Creatinine 1.7 H, Estimated GFR (MDRD) 41 L, Glucose 116 H, Calcium 9.7 02/15/21 20:27: WBC 6.3, RBC 4.40 L, Hgb 12.4 L, Hct 39.1 L, MCV 88.9, MCH 28.2, MCHC 31.7 L, RDW 15.1 H, Plt Count 215, MPV 10.3, Neut # (Auto) 1.3 L, Lymph # (Auto) 3.8 H, [place] # (Auto) 0.8, Eos # (Auto) 0.3, Baso # (Auto) 0.1, Absolute Nucleated RBC 0.00, Nucleated RBC % 0.0 Lab results reviewed: Yes Fish Bones: 02/15/21 20:27 02/15/21 20:27 Home Medications and Allergies Pantoprazole [Protonix] 40 mg PO DAILY 04/22/15 Cyanocobalamin (Vitamin B-12) [Vitamin B-12] 1,000 mcg PO DAILY 06/09/16 Ibuprofen [Motrin] 600 mg PO Q6H PRN 07/21/16 Propranolol ER [Inderal LA] 80 mg PO DAILY 06/05/18 Sertraline HCl 150 mg PO DAILY 04/02/19 Aspirin Chewable [St Gonzalo Aspirin] 81 mg PO DAILY 10/20/20 Cholecalciferol (Vitamin D3) [Vitamin D] 50,000 unit PO Q7D 10/20/20 predniSONE [Prednisone] 100 mg PO DAILY PRN 02/05/21 Allergies/Adverse Reactions: Allergies Allergy/AdvReac Type Severity Reaction Status Date / Time No Known Drug Allergies Allergy Verified 02/15/21 19:19 Anes History & Medical History - Anesthetic History Anesthesia Complications: reports: No previous complications Family history of Anesthesia Complications: Denies Family history of Malignant Hyperthermia: Denies - Medical History Cardiovascular: reports: Hypertension, Other (pacemaker) Pulmonary: reports: Sleep apnea Gastrointestinal: reports: GERD, Ulcers Urinary: reports: None Neuro: reports: None Musculoskeletal: reports: None Endocrine/Autoimmune: reports: None Blood Disorders: reports: Anemia Skin: reports: None Smoking Status: Never smoker - Surgical History General: reports: Appendectomy, Bowel surgery Cardiothoracic: reports: Pacemaker Orthopedic: reports: Amputation Exam General: Alert, Oriented x3, Cooperative, No acute distress Dental: Other (edentulous) Mouth Openin Fingerbreadth Neck Mobility: Normal Mallampati classification: I Plan Anesthesia Type: General Consent for Procedure(s) Verified and Reviewed: Yes Code Status: Attempt Resuscitation ASA classification: 3-Severe systemic disease Is this case an emergency?: No
[2021-02-15] MEDS ORDERED: ATROPINE ABBOJECT 1 MG/10 ML SYRINGE IVP PRN (22:33)
[2021-02-15] MEDS ORDERED: ONDANSETRON 4 MG/2 ML VIAL IVP PRN (22:33)
[2021-02-15] MEDS ORDERED: HYDROmorphone 0.5 MG/0.5 ML SYRINGE IVP PRN (22:33)
[2021-02-15] MEDS ORDERED: ePHEDrine 50 MG/ML VIAL IVP PRN (22:33)
[2021-02-15] MEDS ORDERED: MORPHINE 2 MG/ML CARPUJECT IVP PRN (22:33)
[2021-02-15] MEDS ORDERED: NALOXONE 0.4 MG/ML VIAL IVP PRN (22:33)
[2021-02-15] MEDS ORDERED: fentaNYL 100 MCG/2 ML VIAL IVP PRN (22:33)
[2021-02-15] MEDS ORDERED: METOCLOPRAMIDE 10 MG/2 ML VIAL IVP PRN (22:33)
[2021-02-15] MEDS ORDERED: LACTATED RINGERS 1,000 ML IV SCH (23:00)
[2021-02-15] MEDS ORDERED: LACTATED RINGERS 1,000 ML IV ONE (23:13)
--- NOTE | 2021-02-15 23:19 | OPERATIVE REPORT ---
Operative Report - General Procedure Date: 02/15/21 Planned Procedure: EGD, remove Foreign Body Pre-Op Diagnosis: Food impaction in esophagus Procedure Performed: EGD with removal food impaction Post Op Diagnosis: Food impaction in esophagus - Procedure Note Primary Surgeon: Jonathan Christine MD Anesthesia Provider: Farhat PRUITT Anesthesia Technique: General ET tube Pathology: none Indications: Food stuck in esophagus Findings: Food stick in esophagus (two large pieces of unchewed cooked chicken) Complications: none - Other Other Information/Narrative: See endoscopy report with photos
[2021-02-15] MEDS ORDERED: PREDNISONE 50 MG PO PRN (23:23)
--- NOTE | 2021-02-15 23:26 | Discharge Plan ---
Discharge Plan Problem Reviewed?: Yes Disposition: Home, Self Care Condition: Stable Diet: Soft (liquids for 2 days) Activity Restrictions: No Restrictions Shower Restrictions: No Driving Restrictions: No Additional Instructions or Follow Up instructions: Liquid diet for two days. No solid foods until dentures in place. No Smoking: If you smoke, Please STOP! Call for help. Follow-up with: Treva Watts MD [Primary Care Provider] -
--- NOTE | 2021-02-15 23:26 | ANESTHESIA POST OP EVALUATION ---
Anesthesia Post Eval - Post Anesthesia Eval Vitals: Last Vital Signs Temp 36.5 C 02/15/21 22:08 Pulse 96 02/15/21 23:20 Resp 15 02/15/21 23:20 BP 138/93 H 02/15/21 23:20 Pulse Ox 96 02/15/21 23:20 CV Function Including HR & BP: Stable Pain Control: Satisfactory Nausea & Vomiting: Negative Mental Status: Baseline Respiratory Status: Airway Patent Hydration Status: Satisfactory Anesthesia Complications: None
[2021-02-15] MEDS ORDERED: CHOLECALCIFEROL 1250 MCG PO SCH (23:30)
[2021-02-16] MEDS ORDERED: IBUPROFEN 600 MG TABLET PO PRN
[2021-02-16 08:51] VITALS: BP 129/78
[2021-02-16] MEDS ORDERED: SERTRALINE 50 MG TABLET PO SCH (09:00)
[2021-02-16] MEDS ORDERED: PANTOPRAZOLE 40 MG TABLET PO SCH (09:00)
[2021-02-16] MEDS ORDERED: CYANOCOBALAMIN 500 MCG TABLET PO SCH (09:00)
[2021-02-16] MEDS ORDERED: ASPIRIN CHEW 81 MG TABLET PO SCH (09:00)
[2021-02-16] MEDS ORDERED: PROPRANOLOL ER 80 MG CAPSULE PO SCH (09:00)
== END 2021-02-16 08:50 | disposition home or self-care (01) ==
LOC: ED 19:16 → SDS 21:45 → MS2 23:37 → SDS 02-16 08:50
PROVIDERS: ATTEND Surgery
DX: T18.128A Food in esophagus causing other injury, initial encounter (principal); X58.XXXA Exposure to other specified factors, initial encounter; C91.11 Chronic lymphocytic leukemia of B-cell type in remission; I10 Essential (primary) hypertension; G47.30 Sleep apnea, unspecified; K21.9 Gastro-esophageal reflux disease without esophagitis; Z87.11 Personal history of peptic ulcer disease; Z95.0 Presence of cardiac pacemaker; F32.9 Major depressive disorder, single episode, unspecified; E66.9 Obesity, unspecified; Z68.31 Body mass index [BMI] 31.0-31.9, adult; Z20.822 Contact with and (suspected) exposure to COVID-19; Z79.82 Long term (current) use of aspirin; Z79.52 Long term (current) use of systemic steroids; Z79.899 Other long term (current) drug therapy
CPT/HCPCS: 36415; 43247; 80048; 85025; 85610; 87631; J0330; J7120; 0202U; 96374; 99283

== ENCOUNTER 2021-04-15 16:42 | Outpatient (CLI) | payer MEDICARE, MEDICAID | END 2021-04-15 16:43 | disposition EMS.NT | LOC: EMS 16:42 | DX: R10.30 Lower abdominal pain, unspecified (principal) ==

== ENCOUNTER 2022-04-16 08:00 | Outpatient (CLI) | payer MEDICARE, MEDICAID ==
[2022-04-16 18:06] LABS: BASOPHILS % (AUTO) 0.3 %; EOSINOPHILS % (AUTO) 3.1 %; HCT - HEMATOCRIT 40.3 % (42.0-52.0); HGB - HEMOGLOBIN 12.3 g/dL (14.0-18.0); LYMPHOCYTES % (AUTO) 72.8 %; MEAN CORPUSCULAR HGB CONC 30.5 g/dL (32.0-36.0); MEAN CORPUSCULAR VOLUME 91.6 fL (80.0-94.0); MEAN PLATELET VOLUME 11.5 fL (7.4-11.4); MONOCYTES % (AUTO) 3.1 %; NEUTROPHILS % (AUTO) 19.9 %; PLT - PLATELET COUNT 206 10^3/uL (130-450); RED CELL DISTRIBUTION WIDTH 15.2 % (12.0-15.0); WHITE BLOOD COUNT 15.7 x10^3/uL (4.8-10.8)
[2022-04-16 18:07] LABS: ALBUMIN 3.8 g/dL (3.2-5.5); BILIRUBIN,TOTAL 0.6 mg/dL (0.2-1.0); CALCIUM 9.5 mg/dL (8.5-10.3); POTASSIUM 4.2 mmol/L (3.5-5.0); TOTAL PROTEIN 7.5 g/dL (6.7-8.2)
[2022-04-16 18:25] LABS: ABNORMAL LYMPHS % (MANUAL) 0 %; BAND NEUTROPHILS % (MANUAL) 0 %
[2022-04-16 19:48] LABS: BASOPHILS # (MANUAL) 0.2 10^3/uL (0-0.1); BASOPHILS % (MANUAL) 1 %; EOSINOPHILS # (MANUAL) 0.5 10^3/uL (0-0.7); LYMPHOCYTES # (MANUAL) 12.4 10^3/uL (1.5-3.5); LYMPHOCYTES % (MANUAL) 71 %; MONOCYTES # (MANUAL) 0.3 10^3/uL (0.0-1.0); NEUTROPHILS # (MANUAL) 2.4 10^3/uL (1.5-6.6); REACTIVE LYMPHS % (MANUAL) 8 %
[2022-04-16 19:49] LABS: DIFFERENTIAL COMMENT MANUAL DIFFERENTIAL; PLATELET ESTIMATE, MANUAL NORMAL (130-450,000) (NORMAL); PLATELET MORPHOLOGY NORMAL APPEARANCE (NORMAL); RBC MORPHOLOGY (MULTIPLE) NORMAL APPEARANCE (NORMAL)
== END 2022-04-16 23:59 | disposition home or self-care (01) ==
LOC: LAB.N 08:00
PROVIDERS: ATTEND Family Medicine
DX: R68.89 Other general symptoms and signs (principal)
CPT/HCPCS: 36415; 80053; 85025; 85651; 87040; 87086

== ENCOUNTER 2022-04-16 17:02 | Outpatient (CLI) | payer MEDICARE, MEDICAID ==
--- NOTE | 2022-04-16 20:27 | XRAY Report ---
PROCEDURE: Chest 2 View X-Ray INDICATIONS: RIGORS, COUGH TECHNIQUE: 2 views of the chest were acquired. COMPARISON: Chest x-ray 06/20/2013 FINDINGS: Surgical changes and devices: Left chest wall dual-lead pacemaker redemonstrated. Lungs and pleura: There are new patchy indistinct airspace opacities within the right lung consisten t with consolidation. A few indistinct peripheral opacities also noted peripherally in the left lung base consistent with atelectasis or consolidation. There is pleural thickening or loculated pleural f luid laterally in the left lung base. No pneumothorax. Mediastinum: Mediastinal contours are unchanged. Heart size is normal. Bones and chest wall: No suspicious bony abnormalities. Soft tissues appear unremarkable. IMPRESSION: 1. Patchy airspace opacities in the right lung consistent with consolidation likely due to pneumonia. 2. Indistinct left basilar opacities consistent with pneumonia or atelectasis. 3. Left basilar pleural thickening or loculated pleural fluid. Reviewed by: Garret Avila MD on 04/16/2022 8:25 PM PST Approved by: Garret Avila MD on 04/16/2022 8:25 PM PST Station ID: [id number]
== END 2022-04-16 17:03 | disposition home or self-care (01) ==
LOC: DI 17:02
PROVIDERS: ATTEND Family Medicine
DX: R91.8 Other nonspecific abnormal finding of lung field (principal)

== ENCOUNTER 2022-04-16 19:34 | Emergency (ER) | payer MEDICARE, MEDICAID ==
[2022-04-16] MEDS ORDERED: ACETAMINOPHEN 325 MG TABLET PO STA (20:14)
[2022-04-16] MEDS ORDERED: SODIUM CHLORIDE 0.9% 1,000 ML IV STA (20:14)
[2022-04-16] MEDS ORDERED: AZITHROMYCIN INJ 500 MG in SODIUM CHLORIDE 0.9% 250 ML IV STA (20:15)
--- NOTE | 2022-04-16 20:16 | ED Physician Documentation ---
History of Present Illness - Stated complaint Stated Complaint: ABN LABS - Chief complaint Chief Complaint: Resp - History obtained from History obtained from: Patient - Additonal information Additional information: Patient is a 62-year-old male with a history of CLL in remission presenting for evaluation of feeling tremulous today. He woke up with shaking around 2:00 this morning. He has had a productive cough for the past 2 to 3 weeks of yellow sputum. He denies hemoptysis. He was positive for COVID 3 weeks ago today.He was seen at the walk-in clinic and had labs and an outpatient chest x-ray done. Records from his a walk-in clinic visit today on April 16, 2022 where he was seen by Dr. Hemphill were reviewed.He had a urinalysis dipstick done at the walk-in clinic which was negative.He was also given a dose of IM Rocephin. After he left the walk-in clinic he received a phone call that due to his elevated white blood cell count it was recommended that he come to the emergency depart ment for evaluation. Records were faxed over. Dr. Hemphill had not been able to evaluate the chest x-ray yet as the report was not yet available. Patient denies known fever. He denies chest pain, difficulty breathing, abdominal pain, vomiting, diarrhea, dysuria.He reports normal activity and appetite today. He is on Brukinsa for CLL maintenance. Review of Systems Constitutional: reports: Chills Nose: reports: Congestion Cardiac: denies: Chest pain / pressure Respiratory: reports: Cough. denies: Dyspnea GI: denies: Abdominal Pain, Vomiting, Diarrhea : denies: Dysuria Musculoskeletal: denies: Back pain Neurologic: denies: Headache PD PAST MEDICAL HISTORY - Past Medical History Cardiovascular: Hypertension, Other Respiratory: Sleep apnea Neuro: None Endocrine/Autoimmune: None GI: GERD, Ulcers : None HEENT: None Psych: Depression Musculoskeletal: None Derm: None - Past Surgical History Past Surgical History: Yes General: Appendectomy, Bowel surgery Ortho: Amputation Cardiovascular: Pacemaker - Present Medications Home Medications: Ambulatory Orders Medication Instructions Recorded Confirmed Pantoprazole [Protonix] 40 mg PO DAILY 04/22/15 02/05/21 Cyanocobalamin (Vitamin B-12) 1,000 mcg PO DAILY 06/09/16 02/05/21 [Vitamin B-12] Ibuprofen [Motrin] 600 mg PO Q6H PRN 07/21/16 02/05/21 Propranolol ER [Inderal LA] 80 mg PO DAILY 06/05/18 02/05/21 Sertraline HCl 150 mg PO DAILY 04/02/19 02/05/21 Aspirin Chewable [St Gonzalo 81 mg PO DAILY 10/20/20 02/05/21 Aspirin] Cholecalciferol (Vitamin D3) 50,000 unit PO Q7D 10/20/20 02/05/21 [Vitamin D3] predniSONE [Prednisone] 100 mg PO DAILY PRN 02/05/21 02/05/21 Amox/Clav 875/125 [Augmentin] 1 each PO Q12H #14 tablet 04/16/22 Azithromycin [Zithromax] 1 tab PO DAILY #4 tab 04/16/22 - Allergies Allergies/Adverse Reactions: Allergies Allergy/AdvReac Type Severity Reaction Status Date / Time No Known Drug Allergies Allergy Verified 04/16/22 19:52 - Social History Does the pt smoke?: No Smoking Status: Never smoker Does the pt drink ETOH?: No Does the pt have substance abuse?: No - Immunizations Immunizations are current?: Yes - POLST Patient has POLST: No PD ED PE NORMAL - General General: Alert and oriented X 3, No acute distress, Well developed/nourished - HEENT HEENT: Atraumatic - Neck Neck: Supple, no meningeal sign - Cardiac Cardiac: RRR, No murmur - Respiratory Respiratory: No respiratory distress, Other (Rhonchi in the right upper lung garcia) - Abdomen Abdomen: Normal bowel sounds, Soft, Non tender, Non distended - Derm Derm: Warm and dry - Extremities Extremities: No calf tenderness / cord - Neuro Neuro: Alert and oriented X 3, No motor deficit, Normal speech Results - Vitals Vitals: Vital Signs - 24 hr 04/16/22 04/16/22 04/16/22 19:45 20:41 22:32 Temperature 37.9 C Heart Rate 98 76 72 Respiratory 17 24 25 H Rate Blood Pressure 93/72 127/83 H 119/74 O2 Saturation 98 99 99 Oxygen O2 Source Room air - Labs Labs: Laboratory Tests 04/16/22 20:24 Lactic Acid 0.9 PD Medical Decision Making - ED course Complexity details: reviewed old records (Dr. Hemphill's note from walk-in clinic visit on April 16, 2022 - Patient received IM Rocephin, negative urine dipstick in the clinic. Outpatient labs and chest x-ray done), reviewed results, re-evaluated patient, d/w patient, d/w family ED course: Patient presenting for evaluation of feeling shaky today with outpatient work-up concerning for elevated white count.On arrival he is afebrile with stable vital signs.His exam and x-ray are suggestive of pneumonia.His hematology and chemistry labs were just done a few hours ago so I do not see a reason to repeat them. However a second set of blood cultures and a lactic were also drawn during this ED visit. A lactic is less than 1.Patient already received Rocephin earlier today. I will give a dose of IV azithromycin, IV fluids and Tylenol.Per curanabel 65, patient does not require inpatient management for his pneumonia. He is not hypoxic. He appears better after IV fluids. Patient will continue on p.o. antibiotics and instructed on need for close follow-up with his PCP.He and his are advised on concerning symptoms to return for.Do not feel respiratory panel would be helpful at this time as patient recently had COVID 3 weeks ago.Flu test would also not be helpful As per patient's symptoms he would be outside of the window for Tamiflu. Departure - Departure Disposition: 01 Home, Self Care Clinical Impression: CAP (community acquired pneumonia) Condition: Stable Instructions: ED Pneumonia Adult Prescriptions: Amox/Clav 875/125 [Augmentin] 1 each PO Q12H #14 tablet Azithromycin [Zithromax] 1 tab PO DAILY #4 tab Comments: The x-ray you had done earlier today shows pneumonia. I have started you on 2 antibiotics and sent these prescriptions to [facility] pharmacy. Please make sure to complete the course of these antibiotics. You have also had 2 sets of blood cultures done. If there are any abnormal results we will notify you. Please continue to stay hydrated, use acetaminophen for fevers. If you have any worsening symptoms such as labored breathing, confusion or any other concerns please return to the emergency department. Discharge Date/Time: 04/16/22 22:38
[2022-04-16 22:34] VITALS: BP 119/74
== END 2022-04-16 22:38 | disposition home or self-care (01) ==
LOC: ED 19:34
DX: J18.9 Pneumonia, unspecified organism (principal); I10 Essential (primary) hypertension
CPT/HCPCS: 36415; 83605; 87040; 99283; 99284; A9270

== ENCOUNTER 2022-04-28 06:33 | Emergency (ER) | payer MEDICARE, MEDICAID ==
[2022-04-28] MEDS ORDERED: SODIUM CHLORIDE 0.9% 1,000 ML IV STA (06:40)
[2022-04-28] MEDS ORDERED: BACITRACIN ZINC OINT 1 PACKET TOP STA (06:41)
[2022-04-28 07:01] LABS: BASOPHILS % (AUTO) 0.5 %; EOSINOPHILS % (AUTO) 3.3 %; HCT - HEMATOCRIT 34.7 % (42.0-52.0); HGB - HEMOGLOBIN 10.6 g/dL (14.0-18.0); LYMPHOCYTES % (AUTO) 68.7 %; MEAN CORPUSCULAR HEMOGLOBIN 27.2 pg (27.0-31.0); MEAN CORPUSCULAR HGB CONC 30.5 g/dL (32.0-36.0); MEAN PLATELET VOLUME 11.1 fL (7.4-11.4); MONOCYTES % (AUTO) 2.6 %; NEUTROPHILS % (AUTO) 23.9 %; PLT - PLATELET COUNT 256 10^3/uL (130-450); RED CELL DISTRIBUTION WIDTH 15.9 % (12.0-15.0)
[2022-04-28 07:07] LABS: SLIDE REVIEW? Indicated
[2022-04-28 07:08] LABS: ABNORMAL LYMPHS % (MANUAL) 0 %
[2022-04-28 07:12] LABS: ALBUMIN 3.2 g/dL (3.2-5.5); ALBUMIN/GLOBULIN RATIO 0.9 (1.0-2.2); BILIRUBIN,TOTAL 0.7 mg/dL (0.2-1.0); CALCIUM 8.6 mg/dL (8.5-10.3); CREATININE 1.1 mg/dL (0.6-1.2); POTASSIUM 3.9 mmol/L (3.5-5.0); TOTAL PROTEIN 6.9 g/dL (6.7-8.2)
[2022-04-28 07:27] LABS: BAND NEUTROPHILS % (MANUAL) 1 %; DIFFERENTIAL COMMENT MANUAL DIFFERENTIAL; EOSINOPHILS # (MANUAL) 0.5 10^3/uL (0-0.7); LYMPHOCYTES # (MANUAL) 6.4 10^3/uL (1.5-3.5); LYMPHOCYTES % (MANUAL) 38 %; MONOCYTES # (MANUAL) 0.4 10^3/uL (0.0-1.0); NEUTROPHILS # (MANUAL) 2.7 10^3/uL (1.5-6.6); REACTIVE LYMPHS % (MANUAL) 26 %
--- NOTE | 2022-04-28 07:49 | ED Physician Documentation ---
PD HPI SYNCOPE - Stated complaint Stated Complaint: SYNCOPE - Chief complaint Chief Complaint: Neuro - History obtained from History obtained from: Patient, Family (Patient's ) - Additional information Additional information: Patient is a 62-year-old male with a history of lymphoma presenting for evaluation after a syncopal episode. Patient had just gone to the bathroom when he was feeling dizzy and lightheaded and had a syncopal event. He did strike his head. He had brief LOC.He reports having mild headache After the episode. He denies having a headache prior. He denies neck pain, chest pain, difficulty breathing, abdominal pain. He was recently seen in the emergency department and treated for pneumonia and feels that he is recovering from this. Since having COVID approximately 1 month ago he continues to feel fatigued per his . She continues to test him and he continues to be positive on her home test.He denies having a cough or feeling short of breath. He does not take a blood thinner.He does have a pacemaker which is [employer]. Review of Systems Constitutional: denies: Fever Cardiac: denies: Chest pain / pressure Respiratory: denies: Dyspnea, Cough GI: denies: Abdominal Pain, Vomiting : denies: Dysuria Musculoskeletal: denies: Back pain Neurologic: reports: Headache, Head injury, LOC PD PAST MEDICAL HISTORY - Past Medical History Past Medical History: Yes Cardiovascular: Hypertension, Other Respiratory: Sleep apnea Neuro: None Endocrine/Autoimmune: None GI: GERD, Ulcers : None HEENT: None Psych: Depression Musculoskeletal: None Derm: None - Past Surgical History Past Surgical History: Yes General: Appendectomy, Bowel surgery Ortho: Amputation Cardiovascular: Pacemaker - Present Medications Home Medications: Ambulatory Orders Medication Instructions Recorded Confirmed Pantoprazole [Protonix] 40 mg PO DAILY 04/22/15 04/28/22 Cyanocobalamin (Vitamin B-12) 1,000 mcg PO DAILY 06/09/16 04/28/22 [Vitamin B-12] Ibuprofen [Motrin] 600 mg PO Q6H PRN 07/21/16 04/28/22 Propranolol ER [Inderal LA] 80 mg PO DAILY 06/05/18 04/28/22 Sertraline HCl 150 mg PO DAILY 04/02/19 04/28/22 Aspirin Chewable [[place] 81 mg PO DAILY 10/20/20 04/28/22 Aspirin] Cholecalciferol (Vitamin D3) 50,000 unit PO Q7D 10/20/20 04/28/22 [Vitamin D3] - Allergies Allergies/Adverse Reactions: Allergies Allergy/AdvReac Type Severity Reaction Status Date / Time No Known Drug Allergies Allergy Verified 04/16/22 19:52 - Social History Does the pt smoke?: No Smoking Status: Never smoker Does the pt drink ETOH?: No Does the pt have substance abuse?: No - Immunizations Immunizations are current?: Yes - POLST Patient has POLST: No PD ED PE NORMAL - General General: Alert and oriented X 3, No acute distress, Well developed/nourished - HEENT HEENT: PERRL, EOMI, Moist mucous membranes, Pharynx benign, Other (Abrasion to right eyebrow) - Neck Neck: Supple, no meningeal sign, No bony TTP, C-Spine cleared by NEXUS criteria - Cardiac Cardiac: RRR, No murmur - Respiratory Respiratory: No respiratory distress, Clear bilaterally - Abdomen Abdomen: Soft, Non tender - Derm Derm: Warm and dry - Extremities Extremities: No deformity, No tenderness to palpate - Neuro Neuro: Alert and oriented X 3, mechanic insulator 2-12 intact, No motor deficit, No sensory deficit, Normal speech Eye Opening: Spontaneous Motor: Obeys Commands Verbal: Oriented GCS Score: 15 Results - Vitals Vitals: Vital Signs - 24 hr 04/28/22 09:29 Heart Rate 60 Respiratory 16 Rate Blood Pressure 135/71 H O2 Saturation 91 L Oxygen O2 Source Room air - EKG (time done) 0707 Rate: Rate (enter#) (60) Rhythm: NSR Intervals: No: Prolonged QT Ischemia: No: ST elevation c/w ischemia - Labs Labs: Laboratory Tests 04/28/22 04/28/22 04/28/22 06:53 06:53 06:53 WBC 10.0 RBC 3.90 L Hgb 10.6 L Hct 34.7 L MCV 89.0 MCH 27.2 MCHC 30.5 L RDW 15.9 H Plt Count 256 MPV 11.1 Neut # (Auto) Not Reportable Lymph # (Auto) Not Reportable [place] # (Auto) Not Reportable Eos # (Auto) Not Reportable Baso # (Auto) Not Reportable Absolute Nucleated RBC Not Reportable Total Counted 100 Band Neuts % (Manual) 1 Reactive Lymphs % (Man) 26 Abnorm Lymph % (Manual) 0 Nucleated RBC % Not Reportable Neutrophils # (Manual) 2.7 Lymphocytes # (Manual) 6.4 H Monocytes # (Manual) 0.4 Eosinophils # (Manual) 0.5 Basophils # (Manual) 0.0 Differential Comment MANUAL DIFFERENTIAL Manual Slide Review Indicated Sodium 136 Potassium 3.9 Chloride 98 L Carbon Dioxide 28 Anion Gap 10.0 BUN 15 Creatinine 1.1 Estimated GFR (MDRD) 68 L Glucose 123 H Calcium 8.6 Total Bilirubin 0.7 AST 39 ALT 35 Alkaline Phosphatase 54 Troponin I High Sens 4.9 Total Protein 6.9 Albumin 3.2 Globulin 3.7 Albumin/Globulin Ratio 0.9 L Lipase 33 PD Medical Decision Making - ED course Complexity details: reviewed results, re-evaluated patient, d/w patient, d/w family ED course: Pt presenting after syncopal episode. Has abrasion to head and mild headache so CT obtained without acute findings. I also reviewed the images and see no signs of hemorrhage. Labs with baseline anemia. Pacemaker interrogated and no events per device rep. Pt feeling better here. No CP to suggest ACS and high sensitivity troponin is negative. Does not appear septic. Chest xray read as worsening infiltrates vs edema. Clinically does not appear to be in fluid overload and recently completed antibiotic treatment for pneumonia with improvement in his symptoms. Pt ambulatory here with no stroke like symptoms and feels comfortable with plan for discharge. Pt and advised on return p recautions. 0957 - Discussed pacemaker results with [employer] rep. There were no events this morning. Departure - Departure Disposition: 01 Home, Self Care Clinical Impression: Syncope Condition: Stable Instructions: ED Fainting Unkn Cause Follow-Up: JUSTICE BERNARD MD [Primary Care Provider] - Comments: You were evaluated after a fainting spell. Your CT scan shows sinus issues but this appears to be a chronic Edition for you and you have recently been on antibiotics. Your pacemaker did not have any events. Please continue to take it easy today and have close follow-up with your primary care doctor. If you have any worsening symptoms such as difficulty breathing then please return to the emergency department. Discharge Date/Time: 04/28/22 10:45
--- NOTE | 2022-04-28 08:36 | CT Report ---
PROCEDURE: HEAD WO INDICATIONS: syncope, +HT TECHNIQUE: Noncontrast 4.5 mm thick angled axial sections acquired from the foramen magnum to the vertex. For r adiation dose reduction, the following was used: automated exposure control, adjustment of mA and/or kV according to patient size. COMPARISON: None. FINDINGS: Image quality: Excellent. CSF spaces: Basal cisterns are patent. No extra-axial fluid collections. Ventricles are normal in size and shape. Brain: No midline shift. No intracranial masses or hemorrhage. Shi-white matter interface is norm al. Skull and face: Calvarium and visualized facial bones are intact, without suspicious lesions. Sinuses: Subtotal opacification of the left maxillary sinus. Marked mucosal thickening of the right m axillary sinus. Subtotal opacification of the ethmoids, in a pattern suggesting chronic sinusitis. Reeder btotal opacification of the frontal sinuses. Bilateral sphenoid sinus mucosal thickening. IMPRESSION: 1. No evidence acute intracranial abnormality. 2. Extensive changes of chronic sinusitis with likely acute superimposed component. Findings are concordant with preliminary interpretation provided by [facility]. Reviewed by: Dangelo Sánchez MD on 04/28/2022 8:35 AM PST Approved by: Dangelo Sánchez MD on 04/28/2022 8:35 AM PST Station ID: [id number]
--- NOTE | 2022-04-28 08:54 | XRAY Report ---
PROCEDURE: Chest 1 View X-Ray INDICATIONS: Chest Pain TECHNIQUE: One view of the chest was acquired. COMPARISON: Chest radiographs 04/16/2022. FINDINGS: Surgical changes and devices: A cardiac pacemaker is seen with pulse generator in the left chest. Lungs and pleura: Patchy bilateral pulmonary opacities have increased when compared to the exam from 623. No significant pleural effusion or pneumothorax. Mediastinum: Mediastinal contours appear normal. Heart size is mildly enlarged. Bones and chest wall: No suspicious bony lesions. Overlying soft tissues appear unremarkable. IMPRESSION: 1.Increased bilateral pulmonary opacities are suspicious for worsening bilateral pneumonia versus pul monary edema. 2.Cardiomegaly. There is no significant discrepancy when compared with the preliminary overnight report. Reviewed by: Jose Luis Prescott MD on 04/28/2022 8:53 AM [facility] Approved by: Jose Luis Prescott MD on 04/28/2022 8:53 AM [facility] Station ID: [id number]
[2022-04-28 09:30] VITALS: BP 135/71
== END 2022-04-28 10:45 | disposition home or self-care (01) ==
LOC: EDUNIT# → EDBD → ED 06:33
DX: R55 Syncope and collapse (principal)
CPT/HCPCS: 36415; 80053; 83690; 84484; 85025; 93005; 99284

== ENCOUNTER 2022-09-29 00:04 | Outpatient (CLI) | payer MEDICARE, MEDICAID | END 2022-09-29 00:05 | disposition critical access hospital (66) | LOC: EMS 00:04 | DX: R55 Syncope and collapse (principal); R42 Dizziness and giddiness; R53.1 Weakness | CPT/HCPCS: A0425; A0427 ==

== ENCOUNTER 2022-09-29 00:24 | Emergency (ER) | payer MEDICARE, MEDICAID ==
[2022-09-29 00:54] LABS: BASOPHILS % (AUTO) 0.6 %; HCT - HEMATOCRIT 38.5 % (42.0-52.0); HGB - HEMOGLOBIN 11.6 g/dL (14.0-18.0); LYMPHOCYTES % (AUTO) 54.1 %; MEAN CORPUSCULAR HEMOGLOBIN 25.6 pg (27.0-31.0); MEAN CORPUSCULAR HGB CONC 30.1 g/dL (32.0-36.0); MEAN CORPUSCULAR VOLUME 84.8 fL (80.0-94.0); MEAN PLATELET VOLUME 10.3 fL (7.4-11.4); MONOCYTES % (AUTO) 5.3 %; NEUTROPHILS % (AUTO) 38.7 %; PLT - PLATELET COUNT 249 10^3/uL (130-450); RED BLOOD COUNT 4.54 10^6/uL (4.70-6.10); RED CELL DISTRIBUTION WIDTH 17.2 % (12.0-15.0); WHITE BLOOD COUNT 9.4 x10^3/uL (4.8-10.8)
[2022-09-29 01:00] LABS: ABNORMAL LYMPHS % (MANUAL) 0 %
[2022-09-29 01:04] LABS: ALBUMIN 3.3 g/dL (3.2-5.5); ALBUMIN/GLOBULIN RATIO 0.9 (1.0-2.2); CREATININE 1.3 mg/dL (0.6-1.2); POTASSIUM 3.3 mmol/L (3.5-5.0); TOTAL PROTEIN 6.8 g/dL (6.7-8.2)
[2022-09-29 01:13] LABS: BAND NEUTROPHILS % (MANUAL) 4 %; BASOPHILS # (MANUAL) 0.1 10^3/uL (0-0.1); BASOPHILS % (MANUAL) 1 %; LYMPHOCYTES # (MANUAL) 6.2 10^3/uL (1.5-3.5); LYMPHOCYTES % (MANUAL) 66 %; MONOCYTES # (MANUAL) 0.4 10^3/uL (0.0-1.0); NEUTROPHILS # (MANUAL) 2.7 10^3/uL (1.5-6.6)
[2022-09-29 01:14] LABS: DIFFERENTIAL COMMENT MANUAL DIFFERENTIAL; PLATELET ESTIMATE, MANUAL NORMAL (130-450,000) (NORMAL); PLATELET MORPHOLOGY 1+ LARGE PLATELETS (NORMAL); RBC MORPHOLOGY (MULTIPLE) NORMAL APPEARANCE (NORMAL); WBC MORPHOLOGY (MULTIPLE) NORMAL APPEARANCE (NORMAL)
--- NOTE | 2022-09-29 03:15 | ED Physician Documentation ---
PD HPI SYNCOPE - Stated complaint Stated Complaint: SYNCOPE - Chief complaint Chief Complaint: Neuro - History obtained from History obtained from: Patient - History of Present Illness Witnessed: Witnessed Injury occurred: No: Fell, Head injury, Neck injury - Additional information Additional information: HPI from patient and spouse. Patient was asleep in bed, got up to use the BR tonight, felt lightheaded, generalized weakness, felt like he was going to pass out and helped self to ground , then had syncope lasting up to one minute. He has been having diarrhea x 1-2 days and patient and his both say he does not drink enough fluids on an average day. Notes mild, [employer] cough x few days. Denies fever. On HPI/ROS, only c/o mild generalized weakness. Febrile in ED but was not aware of fever at home Review of Systems Cardiac: reports: Reviewed and negative Respiratory: reports: Reviewed and negative GI: reports: Reviewed and negative Musculoskeletal: reports: Reviewed and negative Neurologic: reports: Generalized weakness. denies: Focal weakness, Numbness, Headache, Head injury PD PAST MEDICAL HISTORY - Past Medical History Cardiovascular: Hypertension, Other Respiratory: Sleep apnea Neuro: None Endocrine/Autoimmune: None GI: GERD, Ulcers : None HEENT: None Psych: Depression Musculoskeletal: None Derm: None - Past Surgical History Past Surgical History: Yes General: Appendectomy, Bowel surgery Ortho: Amputation Cardiovascular: Pacemaker - Present Medications Home Medications: Ambulatory Orders Medication Instructions Recorded Confirmed Pantoprazole [Protonix] 40 mg PO DAILY 04/22/15 04/28/22 Cyanocobalamin (Vitamin B-12) 1,000 mcg PO DAILY 06/09/16 04/28/22 [Vitamin B-12] Ibuprofen [Motrin] 600 mg PO Q6H PRN 07/21/16 04/28/22 Propranolol ER [Inderal LA] 80 mg PO DAILY 06/05/18 04/28/22 Sertraline HCl 150 mg PO DAILY 04/02/19 04/28/22 Aspirin Chewable [[place] Gonz[place] 81 mg PO DAILY 10/20/20 04/28/22 Aspirin] Cholecalciferol (Vitamin D3) 50,000 unit PO Q7D 10/20/20 04/28/22 [Vitamin D3] - Allergies Allergies/Adverse Reactions: Allergies Allergy/AdvReac Type Severity Reaction Status Date / Time No Known Drug Allergies Allergy Verified 04/16/22 19:52 - Social History Does the pt smoke?: No Smoking Status: Never smoker Does the pt drink ETOH?: No Does the pt have substance abuse?: No - Immunizations Immunizations are current?: Yes - POLST Patient has POLST: No PD ED PE NORMAL - Vitals Vital signs reviewed: Yes - General General: Alert and oriented X 3, No acute distress, Well developed/nourished - Neck Neck: No bony TTP - Cardiac Cardiac: RRR, No murmur, No gallop, No rub - Respiratory Respiratory: No respiratory distress, Clear bilaterally - Abdomen Abdomen: Soft, Non tender - Back Back: No CVA TTP - Derm Derm: Normal color, Warm and dry - Extremities Extremities: No edema - Neuro Neuro: Alert and oriented X 3, gasoline finisher 2-12 intact, No motor deficit, No sensory deficit, Normal speech Eye Opening: Spontaneous Motor: Obeys Commands Verbal: Oriented GCS Score: 15 Results - Vitals Vitals: Oxygen O2 Source Room air - EKG (time done) No standard instances EKG releavant findings:: EKG personally interpreted by author of this note. Relevant findings are: Rate: Rate (enter#) (80) Rhythm: NSR [place]: Normal Intervals: Normal [place] QRS: Normal Ischemia: Normal ST segments - Labs Labs: Laboratory Tests 09/29/22 09/29/22 09/29/22 00:46 00:46 00:46 WBC 9.4 RBC 4.54 L Hgb 11.6 L Hct 38.5 L MCV 84.8 MCH 25.6 L MCHC 30.1 L RDW 17.2 H Plt Count 249 MPV 10.3 Neut # (Auto) Not Reportable Lymph # (Auto) Not Reportable [place] # (Auto) Not Reportable Eos # (Auto) Not Reportable Baso # (Auto) Not Reportable Absolute Nucleated RBC Not Reportable Total Counted 100 Band Neuts % (Manual) 4 Abnorm Lymph % (Manual) 0 Nucleated RBC % Not Reportable Neutrophils # (Manual) 2.7 Lymphocytes # (Manual) 6.2 H Monocytes # (Manual) 0.4 Eosinophils # (Manual) 0.0 Basophils # (Manual) 0.1 Differential Comment MANUAL DIFFERENTIAL WBC Morphology NORMAL APPEARANCE Platelet Estimate NORMAL (130-450,000) Platelet Morphology 1+ LARGE PLATELETS RBC Morph Micro Appear NORMAL APPEARANCE Sodium 130 L Potassium 3.3 L Chloride 96 L Carbon Dioxide 25 Anion Gap 9.0 BUN 20 Creatinine 1.3 H Estimated GFR (MDRD) 56 L Glucose 154 H Calcium 8.0 L Total Bilirubin 1.0 AST 18 ALT 11 Alkaline Phosphatase 58 Troponin I High Sens 9.5 Total Protein 6.8 Albumin 3.3 Globulin 3.5 Albumin/Globulin Ratio 0.9 L Lipase 22 Urine Color Urine Clarity Urine pH Ur Specific [place] Urine Protein Urine Glucose (UA) Urine Ketones Urine Occult Blood Urine Nitrite Urine Bilirubin Urine Urobilinogen Ur Leukocyte Esterase Urine RBC Urine WBC Ur Squamous Epith Cells Urine Bacteria Urine Casts Ur Microscopic Review Urine Culture Comments Nasal Adenovirus (PCR) Nasal B. parapertussis DNA (PCR) Nasal Coronavir 229E PCR Nasal Coronavir HKU1 PCR Nasal Coronavir NL63 PCR Nasal Coronavir OC43 PCR Nasal Enterovir/Rhinovir PCR Nasal Influenza B PCR Nasal Influenza A PCR Nasal Parainfluen 1 PCR Nasal Parainfluen 2 PCR Nasal Parainfluen 3 PCR Nasal Parainfluen 4 PCR Nasal RSV (PCR) Nasal B.pertussis DNA PCR Nasal C.pneumoniae (PCR) Herman Human Metapneumo PCR Nasal M.pneumoniae (PCR) Nasal SARS-CoV-2 (PCR) 09/29/22 09/29/22 03:46 03:47 WBC RBC Hgb Hct MCV MCH MCHC RDW Plt Count MPV Neut # (Auto) Lymph # (Auto) [place] # (Auto) Eos # (Auto) Baso # (Auto) Absolute Nucleated RBC Total Counted Band Neuts % (Manual) Abnorm Lymph % (Manual) Nucleated RBC % Neutrophils # (Manual) Lymphocytes # (Manual) Monocytes # (Manual) Eosinophils # (Manual) Basophils # (Manual) Differential Comment WBC Morphology Platelet Estimate Platelet Morphology RBC Morph Micro Appear Sodium Potassium Chloride Carbon Dioxide Anion Gap BUN Creatinine Estimated GFR (MDRD) Glucose Calcium Total Bilirubin AST ALT Alkaline Phosphatase Troponin I High Sens Total Protein Albumin Globulin Albumin/Globulin Ratio Lipase Urine Color YELLOW Urine Clarity CLEAR Urine pH 5.5 Ur Specific [place] 1.025 Urine Protein 30 H Urine Glucose (UA) NEGATIVE Urine Ketones NEGATIVE Urine Occult Blood NEGATIVE Urine Nitrite NEGATIVE Urine Bilirubin NEGATIVE Urine Urobilinogen 0.2 (NORMAL) Ur Leukocyte Esterase NEGATIVE Urine RBC None Seen Urine WBC 0-3 Ur Squamous Epith Cells RARE Squamous Urine Bacteria None Seen Urine Casts 0-2 Hyaline Casts Ur Microscopic Review INDICATED Urine Culture Comments NOT INDICATED Nasal Adenovirus (PCR) NOT DETECTED Nasal B. parapertussis DNA (PCR) NOT DETECTED Nasal Coronavir 229E PCR NOT DETECTED Nasal Coronavir HKU1 PCR NOT DETECTED Nasal Coronavir NL63 PCR NOT DETECTED Nasal Coronavir OC43 PCR NOT DETECTED Nasal Enterovir/Rhinovir PCR NOT DETECTED Nasal Influenza B PCR NOT DETECTED Nasal Influenza A PCR NOT DETECTED Nasal Parainfluen 1 PCR NOT DETECTED Nasal Parainfluen 2 PCR NOT DETECTED Nasal Parainfluen 3 PCR NOT DETECTED Nasal Parainfluen 4 PCR NOT DETECTED Nasal RSV (PCR) NOT DETECTED Nasal B.pertussis DNA PCR NOT DETECTED Nasal C.pneumoniae (PCR) NOT DETECTED Herman Human Metapneumo PCR NOT DETECTED Nasal M.pneumoniae (PCR) NOT DETECTED Nasal SARS-CoV-2 (PCR) DETECTED A - Rads (name of study) chest xray Relevant Findings:: Prelim report reviewed, See rad report PD Medical Decision Making - ED course Complexity details: reviewed results, re-evaluated patient, considered differential, d/w patient ED course: Given 1.5 liters NS bolus. Was normotensive while lying in stretcher during ED stay and mostly asymptomatic (c/o feeling tired and mild, generalized weakness early in ED stay). No concerning nor diagnostic findings on tonights tests including no acute EKG findings, normal hs-cTn, minimally low hgb (11.6). He had a syncopal episode in xray; he had just completed cxr, was seated in wheelchair when he felt lightheaded, leaned forward, helped self to ground (did not fall). I immediately went to xray to check on patient, found him on the floor, awake, alert, oriented x 3 and NAD. He was brought back to ED, given more IV fluids. I went to recheck on him and he says he feels much better and he and are now requesting immediate discharge home. Results d/w patient and family, return precautions reviewed. Cause of his syncope is not apparent at this time. Departure - Departure Disposition: 01 Home, Self Care Clinical Impression: Syncope, COVID-19 Condition: Good Instructions: ED Fainting Unkn Cause, ED Viral Syndrome Follow-Up: JUSTICE BERNARD PA-C [Primary Care Provider] - (3-5 days) Comments: Your nasal swab was positive for COVID. For this, you are being given antiviral medication (Paxlovid). Follow the instructions on the Paxlovid kit. You should go to the CDC website and look for the section on COVID regarding isolation and quarantine. Be sure to keep hydrated; I suspect dehydration was a factor in your episodes of syncope (fainting or passing out). Discharge Date/Time: 09/29/22 06:52
[2022-09-29] MEDS ORDERED: POTASSIUM BICARB 25 MEQ TABLET PO STA (03:31)
[2022-09-29 04:06] LABS: BILIRUBIN,URINE NEGATIVE (NEGATIVE); GLUCOSE, URINE (UA) NEGATIVE (NEGATIVE); KETONES,URINE (UA) NEGATIVE (NEGATIVE); LEUKOCYTE ESTERASE, URINE NEGATIVE (NEGATIVE); NITRITE,URINE NEGATIVE (NEGATIVE); OCCULT BLOOD,URINE NEGATIVE (NEGATIVE); PH,URINE 5.5 PH (5.0-7.5); PROTEIN,URINE 30 mg/dL (NEGATIVE); UROBILINOGEN,URINE 0.2 (NORMAL) E.U./dL (NORMAL)
[2022-09-29 04:07] LABS: CLARITY,URINE CLEAR (CLEAR)
[2022-09-29 04:18] LABS: BACTERIA,URINE None Seen /HPF (None Seen); CASTS, URINE 0-2 Hyaline Casts /LPF; RBC,URINE None Seen /HPF (0-5); SQUAMOUS EPITHELIAL CELL,UR RARE Squamous (<= Few); WBC,URINE 0-3 /HPF (0-3)
[2022-09-29] MEDS ORDERED: ACETAMINOPHEN 325 MG TABLET PO STA (04:19)
[2022-09-29] MEDS ORDERED: SODIUM CHLORIDE 0.9% 1,000 ML IV STA (04:48)
[2022-09-29 04:53] LABS: CORONAVIRUS 229E-RESP PCR NOT DETECTED; CORONAVIRUS HKU1-RESP PCR NOT DETECTED; CORONAVIRUS NL63-RESP PCR NOT DETECTED; CORONAVIRUS OC43-RESP PCR NOT DETECTED
[2022-09-29 04:54] LABS: B. PARAPERTUSSIS- RESP PCR PAN NOT DETECTED; B. PERTUSSIS- RESP PCR PANEL NOT DETECTED; C. PNEUMONIAE- RESP PCR PANEL NOT DETECTED; HUMAN METAPNEUMOVIRUS NOT DETECTED; INFLUENZA A- RESP PCR PANEL NOT DETECTED; INFLUENZA B - RESP PCR PANEL NOT DETECTED; M. PNEUMONIAE- RESP PCR PANEL NOT DETECTED; PARAINFLUENZA VIRUS 1 NOT DETECTED; PARAINFLUENZA VIRUS 2 NOT DETECTED; PARAINFLUENZA VIRUS 3 NOT DETECTED; PARAINFLUENZA VIRUS 4 NOT DETECTED; RHINOVIRUS/ENTEROVIRUS NOT DETECTED; RSV- RESP PCR PANEL NOT DETECTED; SARS-CoV-2 -RESP PCR PANEL DETECTED
[2022-09-29] MEDS ORDERED: NIRMATRELVIR/RITONAVIR PREPACK PO STA (06:21)
[2022-09-29 06:55] VITALS: BP 118/73
--- NOTE | 2022-09-29 07:59 | XRAY Report ---
PROCEDURE: Chest 2 View X-Ray INDICATIONS: syncope TECHNIQUE: 2 views of the chest were acquired. COMPARISON: Chest x-ray, 09/26/2022 and 09/14/2022. FINDINGS: Surgical changes and devices: There is a cardiac pacemaker in expected position. Lungs and pleura: No pneumothorax. Small left pleural effusion or thickening. Left basilar atelectas is. Bilateral interstitial prominence. Mediastinum: Mediastinal contours appear normal. Heart size is normal. Bones and chest wall: No suspicious bony lesions. Overlying soft tissues appear unremarkable. IMPRESSION: Bilateral interstitial prominence with trace left pleural effusion or pleural thickening. Potential d iagnoses are mild pulmonary edema versus atypical pneumonia. No significant discrepancy with the preliminary interpretation. Reviewed by: Zunilda Shields MD on 09/29/2022 7:57 AM PDT Approved by: Zunilda Shields MD on 09/29/2022 7:57 AM PDT Station ID: [id number]
== END 2022-09-29 06:52 | disposition home or self-care (01) ==
LOC: EDUNIT# → ED 00:24
DX: U07.1 COVID-19 (principal); R55 Syncope and collapse; I10 Essential (primary) hypertension; Z79.899 Other long term (current) drug therapy; Z79.82 Long term (current) use of aspirin
CPT/HCPCS: 36415; 71046; 80053; 81001; 83690; 84484; 85025; 87633; 93005; 99284; A9270; J3490; 81003; 87086

== ENCOUNTER 2022-11-15 15:55 | Outpatient (CLI) | payer MEDICARE, MEDICAID | END 2022-11-15 23:59 | disposition short-term general hospital (02) | LOC: EMS 15:55 | DX: R55 Syncope and collapse (principal); R19.7 Diarrhea, unspecified; R42 Dizziness and giddiness | CPT/HCPCS: A0425; A0427 ==